=== PATIENT | male | born 1995 | race African-American/Black ===

== ENCOUNTER 2017-02-17 13:11 | Emergency (ER) | payer SELFPAY ==
[~2017-02-17] VITALS: Ht 177.8 cm; Wt 81.6 kg
[2017-02-17 13:20] VITALS: BP 130/78
[2017-02-17] MEDS ORDERED: FLUORESCEIN OPHTH TEST STRIP. OD ONE (13:30)
[2017-02-17] MEDS ORDERED: EYE-STREAM OPHTH SOLUTION 120 ML BOTTLE. OD ONE (13:30)
[2017-02-17] MEDS ORDERED: TETRACAINE 0.5% OPHTH SOLUTION 4ML BOTTLE. OD ONE (13:30)
--- NOTE | 2017-02-17 13:36 | PHYS DOC ---
Past Medical History Past Medical History: No Pertinent History Past Surgical History: Other Additional Past Surgical Histo: R leg Alcohol Use: Rarely Drug Use: Marijuana Adult General Chief Complaint Chief Complaint: EYE PROBLEMS HPI HPI Patient is a 21 year old female presents to the emergency department stating that he was requesting that he has contact lenses and he states that he felt his left eye beginning to burn and sting. Patient states that he has had clear yellow drainage noted from the sites. Patient states that he is unsure when his last tetanus immunization occurred. He does have redness noted in the sclera part of his eyes in the conjunctiva. Patient denies any foreign bodies. Review of Systems Review of Systems Constitutional: Denies fever or chills [] Eyes: Denies change in visual acuity, complaint of redness and I tenderness with burning, clear drainage. HENT: Denies nasal congestion or sore throat [] Respiratory: Denies cough or shortness of breath [] Cardiovascular: No additional information not addressed in HPI [] GI: Denies abdominal pain, nausea, vomiting, bloody stools or diarrhea [] : Denies dysuria or hematuria [] Musculoskeletal: Denies back pain or joint pain [] Integument: Denies rash or skin lesions [] Neurologic: Denies headache, focal weakness or sensory changes [] Endocrine: Denies polyuria or polydipsia [] Current Medications Current Medications Current Medications Medications (Trade) Dose Ordered Sig/Obie Start Time Stop Time Status Last Admin Dose Admin Balanced Salt Solution (Eye-Stream) 120 ml 1X ONCE 02/17/17 13:45 02/17/17 13:46 DC Diphtheria/ Tetanus/Acell Pertussis (Boostrix) 0.5 ml ONCE ONCE 02/17/17 13:45 02/17/17 13:46 DC Fluorescein Sodium (Ful-Candace) 1 strip 1X ONCE 02/17/17 13:45 02/17/17 13:46 DC Tetracaine HCl (Tetracaine) 1 drop 1X ONCE 02/17/17 13:45 02/17/17 13:46 DC Allergies Allergies Allergies Coded Allergies Type Severity Reaction Last Updated Verified Penicillins Allergy Intermediate 02/17/17 Yes Physical Exam Physical Exam Constitutional: Well developed, well nourished, no acute distress, non-toxic appearance. [] HENT: Normocephalic, atraumatic, bilateral external ears normal, oropharynx moist, no oral exudates, nose normal. [] Eyes: PERRLA, EOMI, conjunctiva red, clear drainage noted from the left eye. Neck: Normal range of motion, no tenderness, supple, no stridor. [] Cardiovascular:Heart rate regular rhythm, no murmur [] Lungs & Thorax: Bilateral breath sounds clear to auscultation [] Skin: Warm, dry, no erythema, no rash. [] Back: No tenderness Extremities: No tenderness, no cyanosis, no clubbing, ROM intact, no edema. [] Neurologic: Alert and oriented X 3, normal motor function, normal sensory function, no focal deficits noted. [] Psychologic: Affect normal, judgement normal, mood normal. [] Current Patient Data Vital Signs Vital Signs Date Time Temp Pulse Resp B/P (MAP) Pulse Ox O2 Delivery O2 Flow Rate FiO2 02/17/17 13:20 98.2 84 20 99 Room Air 98.2 EKG EKG [] Radiology/Procedures Radiology/Procedures [] Course & Med Decision Making Course & Med Decision Making Pertinent Labs and Imaging studies reviewed. (See chart for details) Tetracaine was placed into the left eye with fluorescein, no uptake noted. Eye stream at the bedside was used to irrigate the eye. Patient will be discharged home with ofloxacin. He was recommended not to places contact lenses for the next 7 days until the eye is no longer red. 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 He'll be provided with a work note. Signs and symptoms to return back to the emergency department as been provided. Patient agrees with discharge instructions treatment regimens and follow-up recommendations. [] Dragon Disclaimer Dragon Disclaimer This electronic medical record was generated, in whole or in part, using a voice recognition dictation system. Departure Departure Impression: Primary Impression: Conjunctivitis, left eye Disposition: 01 HOME, SELF-CARE Condition: STABLE Referrals: Fransisco CASTAÑEDA MD Patient Instructions: Bacterial Conjunctivitis, [id number] Additional Instructions: Activity as tolerated. Good handwashing is essential. Medications as prescribed. Do not put your contact lenses back anterior left eye for the next 7 days. You'll need to worry or glasses to help with her vision. Follow-up with ophthalmology in the next 24 hours. Return back to emergency prior signs and symptoms of become worse. Scripts Ofloxacin (OCUFLOX) 5 Ml Drops 1-2 DROP OS BID, #[address] in the left eye for the next 7 days Prov: CHRISTEL GODINEZ APRN 02/17/17 CHRISTEL GODINEZ APRN Feb 17, 2017 13:36
[2017-02-17] MEDS ORDERED: EYE-STREAM OPHTH SOLUTION 120 ML BOTTLE. OS ONE (13:45)
[2017-02-17] MEDS ORDERED: DIPHTH,PERTUSS(ACELL),TET TOX 0.5 ML DISP.SYRIN. VAX IM ONE (13:45)
[2017-02-17] MEDS ORDERED: FLUORESCEIN OPHTH TEST STRIP. OS ONE (13:45)
[2017-02-17] MEDS ORDERED: TETRACAINE 0.5% OPHTH SOLUTION 4ML BOTTLE. OS ONE (13:45)
[2017-02-17] MEDS ORDERED: OFLO5DRO OS (13:54)
== END 2017-02-17 14:05 | disposition home or self-care (01) ==
LOC: ER 13:11
DX: H10.9 Unspecified conjunctivitis (principal); F12.10 Cannabis abuse, uncomplicated; Z88.0 Allergy status to penicillin
CPT/HCPCS: 90471; 90715; 99283-25

== ENCOUNTER 2018-02-05 23:35 | Emergency (ER) | payer SELFPAY | END 2018-02-06 01:29 | disposition home or self-care (01) | LOC: ER 23:35 | DX: H61.23 Impacted cerumen, bilateral (principal); H66.92 Otitis media, unspecified, left ear; H60.92 Unspecified otitis externa, left ear; Z88.0 Allergy status to penicillin | CPT/HCPCS: 99283 ==

== ENCOUNTER 2018-06-15 17:58 | Emergency (ER) | payer SELFPAY ==
[2018-05-05 13:37] VITALS: BP 129/88
[~2018-06-15 17:58] MED LIST: AMOX875T PO; CIPR7.5D LEFT EAR; OFLO5DRO OS
== END 2018-06-15 18:20 | disposition left against medical advice (07) ==
LOC: ER 17:58
DX: R10.9 Unspecified abdominal pain (principal); Z53.21 Procedure and treatment not carried out due to patient leaving prior to being seen by health care provider

== ENCOUNTER 2018-10-20 22:34 | Emergency (ER) | payer SELFPAY ==
[~2018-10-20] VITALS: Ht 177.8 cm; Wt 68.0 kg
[2018-10-20 22:40] VITALS: BP 143/89
[2018-10-20] MEDS ORDERED: silver sulfADIAZINE 1% CREAM 25GM TUBE. TP ONE (23:00)
[2018-10-20] MEDS ORDERED: NAPROXEN 500 MG TABLET PO ONE (23:00)
[2018-10-20] MEDS ORDERED: DIPHTH,PERTUSS(ACELL),TET TOX 0.5 ML DISP.SYRIN. VAX IM ONE (23:00)
[2018-10-20] MEDS ORDERED: HYDROcodone/APAP 5/325MG 1 TAB TABLET PO ONE (23:00)
--- NOTE | 2018-10-20 23:19 | PHYS DOC ---
Past Medical History Past Medical History: No Pertinent History Additional Past Medical Histor: EXZEMA (TOBY HUNTER APRN) Past Surgical History: Other Additional Past Surgical Histo: R leg (TOBY HUNTER APRN) Alcohol Use: Occasionally Drug Use: None (TOBY HUNTER APRN) Adult General Chief Complaint Chief Complaint: BURN/SMOKE INHALATION HPI HPI Patient is a 23 year old male with no medical hx who presents with a burn to the right foot. Patient states he was making fried chicken and the oil splattered on his right foot. (TOBY HUNTER APRN) Review of Systems Review of Systems Constitutional: Denies fever or chills [] Musculoskeletal: Denies back pain or joint pain [] Integument:landers to the right foot. Neurologic: Denies headache, focal weakness or sensory changes [] All other systems were reviewed and found to be within normal limits, except as documented in this note. (TOBY HUNTER APRN) Current Medications Current Medications Current Medications Medications (Trade) Dose Ordered Sig/Obie Start Time Stop Time Status Last Admin Dose Admin Acetaminophen/ Hydrocodone Bitart (Lortab 5/325) 2 tab 1X ONCE 10/20/18 23:00 10/20/18 23:01 DC 10/20/18 23:13 2 TAB Diphtheria/ Tetanus/Acell Pertussis (Boostrix) 0.5 ml ONCE ONCE 10/20/18 23:00 10/20/18 23:01 DC 10/20/18 23:14 0.5 ML Naproxen (Naprosyn) 500 mg 1X ONCE 10/20/18 23:00 10/20/18 23:01 DC 10/20/18 23:13 500 MG Silver Sulfadiazine (Silvadene) 1 wanda 1X ONCE 10/20/18 23:00 10/20/18 23:01 DC 10/20/18 23:15 1 WANDA (DOROTA PATEL MD) Allergies Allergies Allergies Coded Allergies Type Severity Reaction Last Updated Verified Penicillins Allergy Intermediate 02/17/17 Yes (DOROTA PATEL MD) Physical Exam Physical Exam Constitutional: Well developed, well nourished, no acute distress, non-toxic appearance. [] Skin: Right mid great toe ventral aspect with a large blister consistent with second-degree burn. The blisters approximately 4 x 2 cm. There is also a tiny blister on the right mid second phalange approximately 0.2 x 0.2 cm. Full range of motion to the right foot and toes. +2 right pedal pulse. Cap refill less than 2 seconds the right toes. Sensation intact to the right toes. Both bounds approximately 0.05% of the foot Back: No tenderness, no CVA tenderness. [] Extremities: No tenderness, no cyanosis, no clubbing, ROM intact, no edema. [] Neurologic: Alert and oriented X 3, normal motor function, normal sensory function, no focal deficits noted. [] Psychologic: Affect normal, judgement normal, mood normal. [] (TOBY HUNTER APRN) Current Patient Data Vital Signs Vital Signs Date Time Temp Pulse Resp B/P (MAP) Pulse Ox O2 Delivery O2 Flow Rate FiO2 10/20/18 23:13 18 97 Room Air 10/20/18 22:40 98.6 106 143/89 (107) 98.6 (DOROTA PATEL MD) EKG EKG [] (TOBY HUNTER APRN) Radiology/Procedures Radiology/Procedures Indication: Blister burn to the right foot Procedure: The patient was positioned appropriately. Local anesthesia was not applicable, the area was cleaned with normal saline and Betadine. An incision was then made on the proximal end of the blister on the right great toe and mild amount of clear material was expressed, the area was covered with none stick dressing and sterile gauze. The patients tetanus status updated as needed. The patient tolerated the procedure well. Complications: none.[] (TOBY HUNTER APRN) Course & Med Decision Making Course & Med Decision Making Pertinent Labs and Imaging studies reviewed. (See chart for details) This is a 23-year-old male patient presenting to the ED today with right foot landers. Patient has burn on the right great toe and right second toe. The right great toe burn was debrided by me. Tetanus updated. Discharged on Bactrim prophylaxis patient is allergic to cephalexin, Silvadene ointment in the ED. Follow-up with PCP or the wound clinic in one week (TOBY HUNTER APRN) Course & Med Decision Making Staff Physician Addendum: I was working in the ER during the course of this patient's visit. I was available for consultation as needed, but I was not directly involved in the care of this patient. (DOROTA PATEL MD) Dragon Disclaimer Dragon Disclaimer This electronic medical record was generated, in whole or in part, using a voice recognition dictation system. (TOBY HUNTER APRN) Departure Departure Impression: Primary Impression: Burn of right foot Disposition: HOME, SELF-CARE Condition: STABLE Referrals: NO PCP (PCP) Follow-up next week with [facility] wound clinic or your own doctor Patient Instructions: Burn Care, [id number] Additional Instructions: You were evaluated for burn on her right foot. Try to ice elevate the extremity tonight. Leave the dressing on the right great toe until tomorrow. Take the prescribed antibiotics until completed. Keep the wound clean and dry. Follow-up with your own doctor or [facility] wound clinic in one to 2 weeks as needed. Scripts Sulfamethoxazole/Trimethoprim (BACTRIM DS TABLET) 1 Each Tablet 1 TAB PO BID, #20 TAB Prov: TOBY HUNTER APRN 10/20/18 Hydrocodone/Apap 5-325 (NORCO 5-325 TABLET) 1 Each Tablet 1-2 TAB PO Q4-6HRS, #25 TAB Prov: TOBY HUNTER APRN 10/20/18 Problem Qualifiers Primary Impression: Burn of right foot Encounter type: initial encounter Burn degree: partial thickness (2nd degree ) Qualified Codes: T25.221A - Burn of second degree of right foot, initial encounter TOBY HUNTER APRN Oct 20, 2018 23:19 DOROTA PATEL MD Oct 21, 2018 04:44
[2018-10-20] MEDS ORDERED: HYDR-3164 PO (23:33)
[2018-10-20] MEDS ORDERED: SULF1TAB24 PO (23:33)
== END 2018-10-20 23:40 | disposition home or self-care (01) ==
LOC: ER 22:34
DX: T25.221A Burn of second degree of right foot, initial encounter (principal); Z88.0 Allergy status to penicillin; T31.0 Burns involving less than 10% of body surface; X10.2XXA Contact with fats and cooking oils, initial encounter; Y93.G3 Activity, cooking and baking; Y92.89 Other specified places as the place of occurrence of the external cause; Y99.8 Other external cause status
CPT/HCPCS: 10140; 90471; 90715; 99284-25

== ENCOUNTER 2019-01-24 19:13 | Inpatient (IN) | payer SELFPAY ==
[~2019-01-24] VITALS: Ht 177.8 cm; Wt 71.3 kg
[~2019-01-24 19:13] MED LIST changes: +HYDR-3164 PO; +SULF1TAB24 PO
[2019-01-24] MEDS ORDERED: FAMOTIDINE 20 MG/2 ML VIAL IVP ONE (19:45)
[2019-01-24] MEDS ORDERED: IV NORMAL SALINE 1000ML BAG 1,000 ML IV ONE (19:45)
[2019-01-24] MEDS ORDERED: KETOROLAC 30 MG/ML VIAL. IV ONE (19:45)
[2019-01-24 19:50] LABS: BILIRUBIN,URINE NEGATIVE (NEG); CLARITY,URINE CLEAR; COLOR,URINE YELLOW; NITRITE,URINE NEGATIVE (NEG); PH,URINE 6.5; PROTEIN,URINE NEGATIVE (NEG-TRACE)
[2019-01-24 20:01] LABS: BASO % 1 % (0-3); EOS # 0.1 x10^3/uL (0.0-0.7); EOS % 1 % (0-3); HEMATOCRIT 40.4 % (39.0-53.0); HEMOGLOBIN 14.1 g/dL (13.0-17.5); LYMPH # 1.1 x10^3/uL (1.0-4.8); LYMPH % 29 % (24-48); MEAN CORPUSCULAR HEMOGLOBIN 33 pg (25-35); MEAN CORPUSCULAR HGB CONC 35 g/dL (31-37); MEAN CORPUSCULAR VOLUME 94 fL (79-100); MONO # 0.9 x10^3/uL (0.0-1.1); MONO % 23 % (0-9); NEUT # 1.8 x10^3uL (1.8-7.7); NEUT % 47 % (31-73); PLATELET COUNT 174 x10^3/uL (140-400); RED BLOOD COUNT 4.28 x10^6/uL (4.30-5.70); RED CELL DISTRIBUTION WIDTH 12.2 % (11.5-14.5); WHITE BLOOD COUNT 3.9 x10^3/uL (4.0-11.0)
[2019-01-24 20:07] LABS: CALCIUM 9.2 mg/dL (8.5-10.1); CREATININE 0.9 mg/dL (0.7-1.3); GFR 125.4; POTASSIUM 3.8 mmol/L (3.5-5.1)
[2019-01-24 20:14] LABS: ALBUMIN 3.9 g/dL (3.4-5.0); MAGNESIUM 2.1 mg/dL (1.8-2.4); TOTAL BILIRUBIN 0.7 mg/dL (0.2-1.0); TOTAL PROTEIN 7.8 g/dL (6.4-8.2)
[2019-01-24 20:20] LABS: BACTERIA,URINE 0 /HPF (0-FEW); RBC,URINE 0 /HPF (0-2); WBC,URINE RARE /HPF (0-4)
--- NOTE | 2019-01-24 20:53 | PHYS DOC ---
Past Medical History Past Medical History: No Pertinent History Additional Past Medical Histor: EXZEMA Past Surgical History: Other Additional Past Surgical Histo: "RIGHT ANKLE" Alcohol Use: Occasionally Drug Use: None Adult General Chief Complaint Chief Complaint: ABDOMINAL PAIN HPI HPI Patient is a 23 year old [f__sex] who presents with [] Review of Systems Review of Systems Constitutional: Denies fever or chills [] Eyes: Denies change in visual acuity, redness, or eye pain [] HENT: Denies nasal congestion or sore throat [] Respiratory: Denies cough or shortness of breath [] Cardiovascular: No additional information not addressed in HPI [] GI: Denies abdominal pain, nausea, vomiting, bloody stools or diarrhea [] : Denies dysuria or hematuria [] Musculoskeletal: Denies back pain or joint pain [] Integument: Denies rash or skin lesions [] Neurologic: Denies headache, focal weakness or sensory changes [] Endocrine: Denies polyuria or polydipsia [] All other systems were reviewed and found to be within normal limits, except as documented in this note. Current Medications Current Medications Current Medications Medications (Trade) Dose Ordered Sig/Obie Start Time Stop Time Status Last Admin Dose Admin Famotidine (Pepcid Vial) 20 mg 1X ONCE 01/24/19 19:45 01/24/19 19:46 DC 01/24/19 19:55 20 MG Ketorolac Tromethamine (Toradol 30mg Vial) 15 mg 1X ONCE 01/24/19 19:45 01/24/19 19:46 DC 01/24/19 19:56 15 MG Sodium Chloride 1,000 ml @ 1,000 mls/hr 1X ONCE 01/24/19 19:45 01/24/19 20:44 DC 01/24/19 19:55 1,000 MLS/HR Allergies Allergies Allergies Coded Allergies Type Severity Reaction Last Updated Verified Penicillins Allergy Intermediate 02/17/17 Yes Physical Exam Physical Exam Constitutional: Well developed, well nourished, no acute distress, non-toxic appearance. [] HENT: Normocephalic, atraumatic, bilateral external ears normal, oropharynx moist, no oral exudates, nose normal. [] Eyes: PERRLA, EOMI, conjunctiva normal, no discharge. [] Neck: Normal range of motion, no tenderness, supple, no stridor. [] Cardiovascular:Heart rate regular rhythm, no murmur [] Lungs & Thorax: Bilateral breath sounds clear to auscultation [] Abdomen: Bowel sounds normal, soft, no tenderness, no masses, no pulsatile masses. [] Skin: Warm, dry, no erythema, no rash. [] Back: No tenderness, no CVA tenderness. [] Extremities: No tenderness, no cyanosis, no clubbing, ROM intact, no edema. [] Neurologic: Alert and oriented X 3, normal motor function, normal sensory function, no focal deficits noted. [] Psychologic: Affect normal, judgement normal, mood normal. [] Current Patient Data Vital Signs Vital Signs Date Time Temp Pulse Resp B/P (MAP) Pulse Ox O2 Delivery O2 Flow Rate FiO2 01/24/19 19:20 98.9 82 18 136/93 (107) 100 Room Air 98.9 Lab Values Laboratory Tests Test 01/24/19 19:30 01/24/19 19:45 Urine Collection Type Unknown Urine Color Yellow Urine Clarity Clear Urine pH 6.5 Urine Specific [place] 1.025 Urine Protein Negative mg/dL (NEG-TRACE) Urine Glucose (UA) Negative mg/dL (NEG) Urine Ketones (Stick) Negative mg/dL (NEG) Urine Blood Negative (NEG) Urine Nitrite Negative (NEG) Urine Bilirubin Negative (NEG) Urine Urobilinogen Dipstick 1.0 mg/dL (0.2 mg/dL) Urine Leukocyte Esterase Negative (NEG) Urine RBC 0 /HPF (0-2) Urine WBC Rare /HPF (0-4) Urine Squamous Epithelial Cells None /LPF Urine Bacteria 0 /HPF (0-FEW) Urine Mucus Slight /LPF White Blood Count 3.9 x10^3/uL (4.0-11.0) L Red Blood Count 4.28 x10^6/uL (4.30-5.70) L Hemoglobin 14.1 g/dL (13.0-17.5) Hematocrit 40.4 % (39.0-53.0) Mean Corpuscular Volume 94 fL (79-100) Mean Corpuscular Hemoglobin 33 pg (25-35) Mean Corpuscular Hemoglobin Concent 35 g/dL (31-37) Red Cell Distribution Width 12.2 % (11.5-14.5) Platelet Count 174 x10^3/uL (140-400) Neutrophils (%) (Auto) 47 % (31-73) Lymphocytes (%) (Auto) 29 % (24-48) Monocytes (%) (Auto) 23 % (0-9) H Eosinophils (%) (Auto) 1 % (0-3) Basophils (%) (Auto) 1 % (0-3) Neutrophils # (Auto) 1.8 x10^3uL (1.8-7.7) Lymphocytes # (Auto) 1.1 x10^3/uL (1.0-4.8) Monocytes # (Auto) 0.9 x10^3/uL (0.0-1.1) Eosinophils # (Auto) 0.1 x10^3/uL (0.0-0.7) Basophils # (Auto) 0.0 x10^3/uL (0.0-0.2) Sodium Level 142 mmol/L (136-145) Potassium Level 3.8 mmol/L (3.5-5.1) Chloride Level 105 mmol/L (98-107) Carbon Dioxide Level 25 mmol/L (21-32) Anion Gap 12 (6-14) Blood Urea Nitrogen 13 mg/dL (8-26) Creatinine 0.9 mg/dL (0.7-1.3) Estimated GFR (Cockcroft-Gault) 125.4 BUN/Creatinine Ratio 14 (6-20) Glucose Level 93 mg/dL (70-99) Calcium Level 9.2 mg/dL (8.5-10.1) Magnesium Level 2.1 mg/dL (1.8-2.4) Total Bilirubin 0.7 mg/dL (0.2-1.0) Aspartate Amino Transferase (AST) 64 U/L (15-37) H Alanine Aminotransferase (ALT) 166 U/L (16-63) H Alkaline Phosphatase 100 U/L (46-116) Total Protein 7.8 g/dL (6.4-8.2) Albumin 3.9 g/dL (3.4-5.0) Albumin/Globulin Ratio 1.0 (1.0-1.7) Lipase 981 U/L (73-393) H Laboratory Tests 01/24/19 19:45 Laboratory Tests 01/24/19 19:45 EKG EKG [] Radiology/Procedures Radiology/Procedures [] Course & Med Decision Making Course & Med Decision Making Pertinent Labs and Imaging studies reviewed. (See chart for details) [] Dragon Disclaimer Dragon Disclaimer This electronic medical record was generated, in whole or in part, using a voice recognition dictation system. Departure Departure Impression: Primary Impression: Acute pancreatitis Disposition: ADMITTED INPATIENT Admitting Physician: HAO APARICIO) Condition: STABLE Referrals: NO PCP (PCP) Problem Qualifiers Primary Impression: Acute pancreatitis Pancreatitis type: unspecified pancreatitis type Acute pancreatitis complication: unspecified Qualified Codes: K85.90 - Acute pancreatitis without necrosis or infection, unspecified JAMES ROGERS DO Jan 24, 2019 20:53
[2019-01-24] MEDS ORDERED: fentaNYL PF VIAL 100 MCG/2 ML VIAL IV PRN (21:00)
[2019-01-24] MEDS ORDERED: ONDANSETRON PF 4 MG/2 ML VIAL. IV PRN (21:00)
[2019-01-24] MEDS ORDERED: IOHEXOL 300 MG/ML 100ML VIAL. IV ONE (21:15)
[2019-01-24] MEDS ORDERED: IOHEXOL 240 MG/ML 50ML VIAL. PO ONE (21:15)
[2019-01-24] MEDS ORDERED: CONTRAST GIVEN. MC PRN (21:30)
[2019-01-24 22:35] LABS: BARBITURATES NEG (NEG); BENZODIAZEPINES NEG (NEG); CANNABINOIDS NEG (NEG); COCAINE NEG (NEG); METHADONE NEG (NEG); OPIATES NEG (NEG); PHENCYCLIDINE NEG (NEG)
[2019-01-24 22:42] LABS: AMPHETAMINE/METHAMPHETAMINE NEG (NEG)
--- NOTE | 2019-01-24 23:08 | PDOC1 ---
History and Physical Date of Admission Date of Admission DATE: 01/24/19 TIME: 23:08 Identification/Chief Complaint Chief Complaint Back pain, pancreatitis Source Source: Patient History of Present Illness History of Present Illness Mr Gilbert is a 23yo M w/ PMHx smoker who p/w 5 day history of nausea, poor PO intake and intractable back pain. He notes he has been taking advil for the pain with some relief, but food has been making the pain worse. He recalls previously he was hospitalized for the same at [facility] and was told he had pancreatitis. In ED was noted with leukopenia and elevated lipase 981 with ALT 166 and AST 64 were elevated as well with a negative tox screen. CT abdomen confirms some fluid around pancreas, no necrosis noted. He is a light alcohol drinker 2-4 drinks per week. Smokes 2-4 "Black and mild" cigarillos per day. Does not use recreational drugs. 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 On further ROS he notes he has been having constipation along with his back pain the past 5 days. Past Medical History Cardiovascular: No pertinent hx Pulmonary: No pertinent hx GI: No pertinent hx Heme/Onc: No pertinent hx Hepatobiliary: No pertinent hx Psych: No pertinent hx Musculoskeletal: low back pain Rheumatologic: No pertinent hx Infectious disease: No pertinent hx ENT: No pertinent hx Renal/: No pertinent hx Endocrine: No pertinent hx Dermatology: Eczema Past Surgical History Past Surgical History: Other (Right ankle fracture) Family History Family History: Family History Unknown Social History Smoke: <1 pack per day ALCOHOL: rare Drugs: None Current Problem List Problem List Problems Medical Problems: (1) Acute pancreatitis Status: Acute Current Medications Current Medications Current Medications Famotidine (Pepcid Vial) 20 mg 1X ONCE IVP Last administered on 01/24/19at 19:55; Start 01/24/19 at 19:45; Stop 01/24/19 at 19:46; Status DC Ketorolac Tromethamine (Toradol 30mg Vial) 15 mg 1X ONCE IV Last administered on 01/24/19at 19:56; Start 01/24/19 at 19:45; Stop 01/24/19 at 19:46; Status DC Sodium Chloride 1,000 ml @ 1,000 mls/hr 1X ONCE IV Last administered on 01/24/19at 19:55; Start 01/24/19 at 19:45; Stop 01/24/19 at 20:44; Status DC Ondansetron HCl (Zofran) 4 mg PRN Q8HRS PRN IV NAUSEA/VOMITING Last administered on 01/24/19at 21:29; Start 01/24/19 at 21:00; Stop 01/25/19 at 20:59 Fentanyl Citrate (Fentanyl 2ml Vial) 50 mcg Q2HR PRN IV PAIN Last administered on 01/24/19at 21:30; Start 01/24/19 at 21:00; Stop 01/25/19 at 20:59 Iohexol (Omnipaque 300 Mg/ml) 75 ml 1X ONCE IV Last administered on 01/24/19at 22:51; Start 01/24/19 at 21:15; Stop 01/24/19 at 21:16; Status DC Iohexol (Omnipaque 240 Mg/ml) 30 ml 1X ONCE PO Last administered on 01/24/19at 22:51; Start 01/24/19 at 21:15; Stop 01/24/19 at 21:16; Status DC Info (CONTRAST GIVEN -- Rx MONITORING) 1 each PRN DAILY PRN MC SEE COMMENTS; Start 01/24/19 at 21:30; Stop 01/26/19 at 21:29 Active Scripts Active Bactrim Ds Tablet (Sulfamethoxazole/Trimethoprim) 1 Each Tablet 1 Tab PO BID Jenkins 5-325 Tablet (Acetaminophen/Hydrocodone Bitart) 1 Each Tablet 1-2 Tab PO Q4-6HRS Ciprodex Otic Suspension (Ciprofloxacin Hcl/Dexameth) 7.5 Ml Drops.susp 4 Drop LEFT EAR BID 7 Days Amoxicillin 875 Mg Tablet 1 Tab PO BID 10 Days Ocuflox (Ofloxacin) 5 Ml Drops 1-[address] in the left eye for the next 7 days Allergies Allergies: Coded Allergies: Penicillins (Verified Allergy, Intermediate, 02/17/17) ROS General: YES: Appetite; No: Chills, Night Sweats, Fatigue, Malaise, Other PSYCHOLOGICAL ROS: No: Anxiety, Behavioral Disorder, Concentration difficultie, Decreased libido, Depression, Disorientation, Hallucinations, Hostility, Irritablity, Memory difficulties, Mood Swings, Obsessive thoughts, Physical abuse, Sexual abuse, Sleep disturbances, Suicidal ideation, Other Eyes: No Blurry vision, No Decreased vision, No Double vision, No Dry eyes, No Excessive tearing, No Eye Pain, No Itchy Eyes, No Loss of vision, No Photophobia, No Scotomata, No Uses contacts, No Uses glasses, No Other HEENT: No: Heacaches, Visual Changes, Hearing change, Nasal congestion, Nasal discharge, Oral lesions, Sinus pain, Sore Throat, Epistaxis, Sneezing, Snoring, Tinnitus, Vertigo, Vocal changes, Other ALLERGY AND IMMUNOLOGY: No: Hives, Insect Bite Sensitivity, Itchy/Watery Eyes, Nasal Congestion, Post Nasal Drip, Seasonal Allergies, Other Hematological and Lymphatic: No: Bleeding Problems, Blood Clots, Blood Transfusions, Brusing, Night Sweats, Pallor, Swollen Lymph Nodes, Other ENDOCRINE: No: Breast Changes, Galactorrhea, Hair Pattern Changes, Hot Flashes, Malaise/lethargy, Mood Swings, Palpitations, Polydipsia/polyuria, Skin Changes, Temperature Intolerance, Unexpected Weight Changes, Other Breast: No New/Changing Breast Lumps, No Nipple changes, No Nipple discharge, No Other Respiratory: No: Cough, Hemoptysis, Orthopnea, Pleuritic Pain, Shortness of breath, SOB with excertion, Sputum Changes, Stridor, Tachypnea, Wheezing, Other Cardiovascular: No Chest Pain, No Palpitations, No Orthopnea, No Paroxysmal Noc. Dyspnea, No Edema, No Lt Headedness, No Other Gastrointestinal: Yes Nausea, Yes Abdominal Pain, Yes Constipation; No Vomiting, No Diarrhea, No Melena, No Hematochezia, No Other Genitourinary: No Dysuria, No Frequency, No Incontinence, No Hematuria, No Retention, No Discharge, No Urgency, No Pain, No Flank Pain, No Other, No , No , No , No , No , No , No Musculoskeletal: Yes Muscle Pain; No Gait Disturbance, No Joint Pain, No Joint Stiffness, No Joint Swelling, No Muscular Weakness, No Pain In:, No Swelling In:, No Other Neurological: No Behavorial Changes, No Bowel/Bladder ControlChng, No Confusion, No Dizziness, No Gait Disturbance, No Headaches, No Impaired Coord/balance, No Memory Loss, No Numbness/Tingling, No Seizures, No Speech Problems, No Tremors, No Visual Changes, No Weakness, No Other Skin: Yes Eczema; No Dry Skin, No Hair Changes, No Lumps, No Mole Changes, No Mottling, No Nail Changes, No Pruritus, No Rash, No Skin Lesion Changes, No Other, No Acne Physical Exam General: Alert, Oriented X3, Cooperative, mild distress HEENT: Atraumatic, PERRLA, EOMI, Mucous membr. moist/pink Lungs: Clear to auscultation, Normal air movement Heart: S1S2, RRR Abdomen: Normal bowel sounds, No hepatosplenomegaly, No masses, Other (LUQ and left flank tender) Rectal Exam: not examined Extremities: No clubbing, No cyanosis, No edema, Normal pulses, No tenderness/swelling Skin: No rashes, No breakdown, No significant lesion Neuro: Normal gait, Normal speech, Strength at 5/5 X4 ext, Normal tone, Sensation intact, Cranial nerves 3-12 NL, Reflexes 2+ Psych/Mental Status: Mental status NL, Mood NL Vitals Vitals Vital Signs Date Time Temp Pulse Resp B/P (MAP) Pulse Ox O2 Delivery O2 Flow Rate FiO2 01/24/19 21:30 18 100 Room Air 01/24/19 19:20 98.9 82 136/93 (107) 98.9 Labs Labs Laboratory Tests Test 01/24/19 19:30 01/24/19 19:45 01/24/19 20:00 01/24/19 20:40 Urine Collection Type Unknown Urine Color Yellow Urine Clarity Clear Urine pH 6.5 Urine Specific [place] 1.025 Urine Protein Negative mg/dL (NEG-TRACE) Urine Glucose (UA) Negative mg/dL (NEG) Urine Ketones (Stick) Negative mg/dL (NEG) Urine Blood Negative (NEG) Urine Nitrite Negative (NEG) Urine Bilirubin Negative (NEG) Urine Urobilinogen Dipstick 1.0 mg/dL (0.2 mg/dL) Urine Leukocyte Esterase Negative (NEG) Urine RBC 0 /HPF (0-2) Urine WBC Rare /HPF (0-4) Urine Squamous Epithelial Cells None /LPF Urine Bacteria 0 /HPF (0-FEW) Urine Mucus Slight /LPF White Blood Count 3.9 x10^3/uL (4.0-11.0) Red Blood Count 4.28 x10^6/uL (4.30-5.70) Hemoglobin 14.1 g/dL (13.0-17.5) Hematocrit 40.4 % (39.0-53.0) Mean Corpuscular Volume 94 fL (79-100) Mean Corpuscular Hemoglobin 33 pg (25-35) Mean Corpuscular Hemoglobin Concent 35 g/dL (31-37) Red Cell Distribution Width 12.2 % (11.5-14.5) Platelet Count 174 x10^3/uL (140-400) Neutrophils (%) (Auto) 47 % (31-73) Lymphocytes (%) (Auto) 29 % (24-48) Monocytes (%) (Auto) 23 % (0-9) Eosinophils (%) (Auto) 1 % (0-3) Basophils (%) (Auto) 1 % (0-3) Neutrophils # (Auto) 1.8 x10^3uL (1.8-7.7) Lymphocytes # (Auto) 1.1 x10^3/uL (1.0-4.8) Monocytes # (Auto) 0.9 x10^3/uL (0.0-1.1) Eosinophils # (Auto) 0.1 x10^3/uL (0.0-0.7) Basophils # (Auto) 0.0 x10^3/uL (0.0-0.2) Sodium Level 142 mmol/L (136-145) Potassium Level 3.8 mmol/L (3.5-5.1) Chloride Level 105 mmol/L (98-107) Carbon Dioxide Level 25 mmol/L (21-32) Anion Gap 12 (6-14) Blood Urea Nitrogen 13 mg/dL (8-26) Creatinine 0.9 mg/dL (0.7-1.3) Estimated GFR (Cockcroft-Gault) 125.4 BUN/Creatinine Ratio 14 (6-20) Glucose Level 93 mg/dL (70-99) Calcium Level 9.2 mg/dL (8.5-10.1) Magnesium Level 2.1 mg/dL (1.8-2.4) Total Bilirubin 0.7 mg/dL (0.2-1.0) Aspartate Amino Transf (AST/SGOT) 64 U/L (15-37) Alanine Aminotransferase (ALT/SGPT) 166 U/L (16-63) Alkaline Phosphatase 100 U/L (46-116) Total Protein 7.8 g/dL (6.4-8.2) Albumin 3.9 g/dL (3.4-5.0) Albumin/Globulin Ratio 1.0 (1.0-1.7) Lipase 981 U/L (73-393) Urine Opiates Screen Neg (NEG) Urine Methadone Screen Neg (NEG) Urine Barbiturates Neg (NEG) Urine Phencyclidine Screen Neg (NEG) Urine Amphetamine/Methamphetamine Neg (NEG) Urine Benzodiazepines Screen Neg (NEG) Urine Cocaine Screen Neg (NEG) Urine Cannabinoids Screen Neg (NEG) Urine Ethyl Alcohol Neg (NEG) Ethyl Alcohol Level < 10 mg/dL (0-10) Laboratory Tests Test 01/24/19 19:30 01/24/19 19:45 01/24/19 20:00 01/24/19 20:40 Urine Collection Type Unknown Urine Color Yellow Urine Clarity Clear Urine pH 6.5 Urine Specific [place] 1.025 Urine Protein Negative mg/dL (NEG-TRACE) Urine Glucose (UA) Negative mg/dL (NEG) Urine Ketones (Stick) Negative mg/dL (NEG) Urine Blood Negative (NEG) Urine Nitrite Negative (NEG) Urine Bilirubin Negative (NEG) Urine Urobilinogen Dipstick 1.0 mg/dL (0.2 mg/dL) Urine Leukocyte Esterase Negative (NEG) Urine RBC 0 /HPF (0-2) Urine WBC Rare /HPF (0-4) Urine Squamous Epithelial Cells None /LPF Urine Bacteria 0 /HPF (0-FEW) Urine Mucus Slight /LPF White Blood Count 3.9 x10^3/uL (4.0-11.0) Red Blood Count 4.28 x10^6/uL (4.30-5.70) Hemoglobin 14.1 g/dL (13.0-17.5) Hematocrit 40.4 % (39.0-53.0) Mean Corpuscular Volume 94 fL (79-100) Mean Corpuscular Hemoglobin 33 pg (25-35) Mean Corpuscular Hemoglobin Concent 35 g/dL (31-37) Red Cell Distribution Width 12.2 % (11.5-14.5) Platelet Count 174 x10^3/uL (140-400) Neutrophils (%) (Auto) 47 % (31-73) Lymphocytes (%) (Auto) 29 % (24-48) Monocytes (%) (Auto) 23 % (0-9) Eosinophils (%) (Auto) 1 % (0-3) Basophils (%) (Auto) 1 % (0-3) Neutrophils # (Auto) 1.8 x10^3uL (1.8-7.7) Lymphocytes # (Auto) 1.1 x10^3/uL (1.0-4.8) Monocytes # (Auto) 0.9 x10^3/uL (0.0-1.1) Eosinophils # (Auto) 0.1 x10^3/uL (0.0-0.7) Basophils # (Auto) 0.0 x10^3/uL (0.0-0.2) Sodium Level 142 mmol/L (136-145) Potassium Level 3.8 mmol/L (3.5-5.1) Chloride Level 105 mmol/L (98-107) Carbon Dioxide Level 25 mmol/L (21-32) Anion Gap 12 (6-14) Blood Urea Nitrogen 13 mg/dL (8-26) Creatinine 0.9 mg/dL (0.7-1.3) Estimated GFR (Cockcroft-Gault) 125.4 BUN/Creatinine Ratio 14 (6-20) Glucose Level 93 mg/dL (70-99) Calcium Level 9.2 mg/dL (8.5-10.1) Magnesium Level 2.1 mg/dL (1.8-2.4) Total Bilirubin 0.7 mg/dL (0.2-1.0) Aspartate Amino Transf (AST/SGOT) 64 U/L (15-37) Alanine Aminotransferase (ALT/SGPT) 166 U/L (16-63) Alkaline Phosphatase 100 U/L (46-116) Total Protein 7.8 g/dL (6.4-8.2) Albumin 3.9 g/dL (3.4-5.0) Albumin/Globulin Ratio 1.0 (1.0-1.7) Lipase 981 U/L (73-393) Urine Opiates Screen Neg (NEG) Urine Methadone Screen Neg (NEG) Urine Barbiturates Neg (NEG) Urine Phencyclidine Screen Neg (NEG) Urine Amphetamine/Methamphetamine Neg (NEG) Urine Benzodiazepines Screen Neg (NEG) Urine Cocaine Screen Neg (NEG) Urine Cannabinoids Screen Neg (NEG) Urine Ethyl Alcohol Neg (NEG) Ethyl Alcohol Level < 10 mg/dL (0-10) Images Images CT abdomen - 1. Fullness and edema of the pancreas which can be seen with pancreatitis. There is also some adjacent free fluid. 2. The appendix is dilated however there is no adjacent inflammatory changes to suggest acute appendicitis. Please note that some patients can have a dilated appendix at baseline and the patient's edema is more centered around the pancreas. 3. Small low density region at the hepatic dome. Typically benign in nature f rom causes such as cyst or hemangioma in a patient of this age. Alternative causes such as a region of edema from infectious etiology not excluded but would be less common. VTE Prophylaxis Ordered VTE Prophylaxis Devices: Yes VTE Pharmacological Prophylaxi: No Assessment/Plan Assessment/Plan A/P: Intractable back pain - likely related to pancreatitis, ok for NSAIDs, heating pad. Could try muscle relaxants if necessary Pancreatitis - will keep NPO overnight, pain control, nausea control Transaminitis - with pancreatitis, will consult GI, check for autoimmune effect as tox screen and ETOH use don't sound to be his problem, not on a thiazide, calcium level ok, will check triglycerides as well. Constipation - will give dulcolax prn Smoker - counseled on cessation, wants gum FEN - NPO PPX - SCDs FULL CODE Inpatient for acute pancreatitis, likely 1-2 midnights BEATRIZ BOSS MD Jan 24, 2019 23:08
--- NOTE | 2019-01-24 23:23 | RAD ---
INDICATION: Abdomen pain, pancreatitis. COMPARISON: None. TECHNIQUE: Axial CT images obtained through the abdomen and pelvis with contrast. One or more of the following individualized dose reduction techniques were utilized for this examination: 1. Automated exposure control; 2. Adjustment of the mA and/or kV according to patient size; 3. Use of iterative reconstruction technique. FINDINGS: Abdominal aorta is not aneurysmal. No intrahepatic bile duct dilation. Low-density region near the hepatic dome at right lobe. Measures approximately 15 mm. Pancreas appears prominent in size with adjacent edema and fluid. Spleen unremarkable. No left-sided hydronephrosis. Urinary bladder is largely decompressed. No right-sided hydronephrosis. The colon is not very distended with some prominence of the wall. Appendix is prominent in size measuring up to about 8 mm but no adjacent inflammatory changes at this time. No dilated loops of bowel to suggest obstruction. IMPRESSION: 1. Fullness and edema of the pancreas which can be seen with pancreatitis. There is also some adjacent free fluid. 2. The appendix is dilated however there is no adjacent inflammatory changes to suggest acute appendicitis. Please note that some patients can have a dilated appendix at baseline and the patient's edema is more centered around the pancreas. 3. Small low density region at the hepatic dome. Typically benign in nature from causes such as cyst or hemangioma in a patient of this age. Alternative causes such as a region of edema from infectious etiology not excluded but would be less common. Electronically signed by: Ronaldo Masterson MD (01/24/2019 11:21 PM) [id number]
[2019-01-24 23:30] VITALS: BP 135/99
[2019-01-24] MEDS ORDERED: BISACODYL 10 MG SUPP.RECT. PR PRN (23:45)
[2019-01-25] MEDS: IV RINGERS,LACTATED 1000ML 1,000 ML IV SCH ×3 (00:06→20:45)
[2019-01-25] MEDS: fentaNYL PF VIAL 100 MCG/2 ML VIAL IV PRN ×10 (00:06→20:40)
--- NOTE | 2019-01-25 01:00 | NUR ---
ADMIT NOTE The patient arrived to unit at 2325 via wheelchair and was given written information regarding hospital policies, unit procedures and contact persons. Pt afebrile and VSS w/ moderate complaints of pain upon admission. Pt orientated to unit and valuables were checked and left in room w/ pt at time of admission. Pt admission assessment complete, admit packet reviewed, and plan of care discussed. Pt resting in bed, call light w/in reach and family at bedside, this nurse will continue to monitor.
[2019-01-25 03:00] VITALS: BP 139/102
[2019-01-25] MEDS: KETOROLAC 15 MG/ML VIAL. IV PRN ×4 (03:20→21:24)
[2019-01-25 06:41] LABS: ALBUMIN 3.3 g/dL (3.4-5.0); ALBUMIN/GLOBULIN RATIO 0.9 (1.0-1.7); CALCIUM 8.4 mg/dL (8.5-10.1); CREATININE 0.7 mg/dL (0.7-1.3); GFR 167.6; POTASSIUM 3.6 mmol/L (3.5-5.1); TOTAL BILIRUBIN 0.7 mg/dL (0.2-1.0); TOTAL PROTEIN 6.8 g/dL (6.4-8.2)
[2019-01-25 07:00] VITALS: BP 140/74
[2019-01-25 11:00] VITALS: BP 127/82
--- NOTE | 2019-01-25 14:06 | PDOC ---
PROGRESS NOTES Chief Complaint Chief Complaint Intractable back pain - likely related to pancreatitis, ok for NSAIDs, heating pad. Could try muscle relaxants if necessary Pancreatitis - will keep NPO overnight, pain control, nausea control Transaminitis - with pancreatitis, will consult GI, check for autoimmune effect as tox screen and ETOH use don't sound to be his problem, not on a thiazide, calcium level ok, will check triglycerides as well. Constipation - will give dulcolax prn Smoker - counseled on cessation, wants gum FEN - NPO PPX - SCDs FULL CODE reassess in the am History of Present Illness History of Present Illness Patient laying in bed in no acute distress. Plan of care has been explained detail to him and to his at bedside. No fever no chills no new complaints reported overnight Vitals Vitals Vital Signs Date Time Temp Pulse Resp B/P (MAP) Pulse Ox O2 Delivery O2 Flow Rate FiO2 01/25/19 13:05 96 Room Air 01/25/19 11:00 98.6 65 18 127/82 (97) 98.6 Physical Exam General: Alert, Oriented X3, Cooperative, mild distress Abdomen: Normal bowel sounds, No hepatosplenomegaly, No masses, Other (LUQ and left flank tender) Extremities: No clubbing, No cyanosis, No edema, Normal pulses, No tenderness/swelling Skin: No rashes, No breakdown, No significant lesion Labs LABS Laboratory Tests Test 01/24/19 19:30 01/24/19 19:45 01/24/19 20:00 01/24/19 20:40 Urine Collection Type Unknown Urine Color Yellow Urine Clarity Clear Urine pH 6.5 Urine Specific [place] 1.025 Urine Protein Negative mg/dL (NEG-TRACE) Urine Glucose (UA) Negative mg/dL (NEG) Urine Ketones (Stick) Negative mg/dL (NEG) Urine Blood Negative (NEG) Urine Nitrite Negative (NEG) Urine Bilirubin Negative (NEG) Urine Urobilinogen Dipstick 1.0 mg/dL (0.2 mg/dL) Urine Leukocyte Esterase Negative (NEG) Urine RBC 0 /HPF (0-2) Urine WBC Rare /HPF (0-4) Urine Squamous Epithelial Cells None /LPF Urine Bacteria 0 /HPF (0-FEW) Urine Mucus Slight /LPF White Blood Count 3.9 x10^3/uL (4.0-11.0) Red Blood Count 4.28 x10^6/uL (4.30-5.70) Hemoglobin 14.1 g/dL (13.0-17.5) Hematocrit 40.4 % (39.0-53.0) Mean Corpuscular Volume 94 fL (79-100) Mean Corpuscular Hemoglobin 33 pg (25-35) Mean Corpuscular Hemoglobin Concent 35 g/dL (31-37) Red Cell Distribution Width 12.2 % (11.5-14.5) Platelet Count 174 x10^3/uL (140-400) Neutrophils (%) (Auto) 47 % (31-73) Lymphocytes (%) (Auto) 29 % (24-48) Monocytes (%) (Auto) 23 % (0-9) Eosinophils (%) (Auto) 1 % (0-3) Basophils (%) (Auto) 1 % (0-3) Neutrophils # (Auto) 1.8 x10^3uL (1.8-7.7) Lymphocytes # (Auto) 1.1 x10^3/uL (1.0-4.8) Monocytes # (Auto) 0.9 x10^3/uL (0.0-1.1) Eosinophils # (Auto) 0.1 x10^3/uL (0.0-0.7) Basophils # (Auto) 0.0 x10^3/uL (0.0-0.2) Erythrocyte Sedimentation Rate 10 (0-15) Sodium Level 142 mmol/L (136-145) Potassium Level 3.8 mmol/L (3.5-5.1) Chloride Level 105 mmol/L (98-107) Carbon Dioxide Level 25 mmol/L (21-32) Anion Gap 12 (6-14) Blood Urea Nitrogen 13 mg/dL (8-26) Creatinine 0.9 mg/dL (0.7-1.3) Estimated GFR (Cockcroft-Gault) 125.4 BUN/Creatinine Ratio 14 (6-20) Glucose Level 93 mg/dL (70-99) Calcium Level 9.2 mg/dL (8.5-10.1) Magnesium Level 2.1 mg/dL (1.8-2.4) Ferritin 726 ng/mL (26-388) Total Bilirubin 0.7 mg/dL (0.2-1.0) Aspartate Amino Transf (AST/SGOT) 64 U/L (15-37) Alanine Aminotransferase (ALT/SGPT) 166 U/L (16-63) Alkaline Phosphatase 100 U/L (46-116) C-Reactive Protein, Quantitative 3.3 mg/L (0-3.3) Total Protein 7.8 g/dL (6.4-8.2) Albumin 3.9 g/dL (3.4-5.0) Albumin/Globulin Ratio 1.0 (1.0-1.7) Lipase 981 U/L (73-393) Urine Opiates Screen Neg (NEG) Urine Methadone Screen Neg (NEG) Urine Barbiturates Neg (NEG) Urine Phencyclidine Screen Neg (NEG) Urine Amphetamine/Methamphetamine Neg (NEG) Urine Benzodiazepines Screen Neg (NEG) Urine Cocaine Screen Neg (NEG) Urine Cannabinoids Screen Neg (NEG) Urine Ethyl Alcohol Neg (NEG) Ethyl Alcohol Level < 10 mg/dL (0-10) Test 01/25/19 05:35 Sodium Level 140 mmol/L (136-145) Potassium Level 3.6 mmol/L (3.5-5.1) Chloride Level 105 mmol/L (98-107) Carbon Dioxide Level 23 mmol/L (21-32) Anion Gap 12 (6-14) Blood Urea Nitrogen 9 mg/dL (8-26) Creatinine 0.7 mg/dL (0.7-1.3) Estimated GFR (Cockcroft-Gault) 167.6 BUN/Creatinine Ratio 13 (6-20) Glucose Level 83 mg/dL (70-99) Calcium Level 8.4 mg/dL (8.5-10.1) Total Bilirubin 0.7 mg/dL (0.2-1.0) Aspartate Amino Transf (AST/SGOT) 42 U/L (15-37) Alanine Aminotransferase (ALT/SGPT) 117 U/L (16-63) Alkaline Phosphatase 88 U/L (46-116) Total Protein 6.8 g/dL (6.4-8.2) Albumin 3.3 g/dL (3.4-5.0) Albumin/Globulin Ratio 0.9 (1.0-1.7) Triglycerides Level 36 mg/dL (0-150) Lipase 1208 U/L (73-393) Thyroid Stimulating Hormone (TSH) 0.854 uIU/mL (0.358-3.74) Review of Systems Review of Systems Pertinent as per history of present illness otherwise 14 point review of system is negative Assessment and Plan Assessmemt and Plan Problems Medical Problems: (1) Acute pancreatitis Status: Acute Comment Review of Relevant I have reviewed the following items parag (where applicable) has been applied. Labs Laboratory Tests Test 01/24/19 19:30 01/24/19 19:45 01/24/19 20:00 01/24/19 20:40 Urine Collection Type Unknown Urine Color Yellow Urine Clarity Clear Urine pH 6.5 Urine Specific [place] 1.025 Urine Protein Negative mg/dL (NEG-TRACE) Urine Glucose (UA) Negative mg/dL (NEG) Urine Ketones (Stick) Negative mg/dL (NEG) Urine Blood Negative (NEG) Urine Nitrite Negative (NEG) Urine Bilirubin Negative (NEG) Urine Urobilinogen Dipstick 1.0 mg/dL (0.2 mg/dL) Urine Leukocyte Esterase Negative (NEG) Urine RBC 0 /HPF (0-2) Urine WBC Rare /HPF (0-4) Urine Squamous Epithelial Cells None /LPF Urine Bacteria 0 /HPF (0-FEW) Urine Mucus Slight /LPF White Blood Count 3.9 x10^3/uL (4.0-11.0) Red Blood Count 4.28 x10^6/uL (4.30-5.70) Hemoglobin 14.1 g/dL (13.0-17.5) Hematocrit 40.4 % (39.0-53.0) Mean Corpuscular Volume 94 fL (79-100) Mean Corpuscular Hemoglobin 33 pg (25-35) Mean Corpuscular Hemoglobin Concent 35 g/dL (31-37) Red Cell Distribution Width 12.2 % (11.5-14.5) Platelet Count 174 x10^3/uL (140-400) Neutrophils (%) (Auto) 47 % (31-73) Lymphocytes (%) (Auto) 29 % (24-48) Monocytes (%) (Auto) 23 % (0-9) Eosinophils (%) (Auto) 1 % (0-3) Basophils (%) (Auto) 1 % (0-3) Neutrophils # (Auto) 1.8 x10^3uL (1.8-7.7) Lymphocytes # (Auto) 1.1 x10^3/uL (1.0-4.8) Monocytes # (Auto) 0.9 x10^3/uL (0.0-1.1) Eosinophils # (Auto) 0.1 x10^3/uL (0.0-0.7) Basophils # (Auto) 0.0 x10^3/uL (0.0-0.2) Erythrocyte Sedimentation Rate 10 (0-15) Sodium Level 142 mmol/L (136-145) Potassium Level 3.8 mmol/L (3.5-5.1) Chloride Level 105 mmol/L (98-107) Carbon Dioxide Level 25 mmol/L (21-32) Anion Gap 12 (6-14) Blood Urea Nitrogen 13 mg/dL (8-26) Creatinine 0.9 mg/dL (0.7-1.3) Estimated GFR (Cockcroft-Gault) 125.4 BUN/Creatinine Ratio 14 (6-20) Glucose Level 93 mg/dL (70-99) Calcium Level 9.2 mg/dL (8.5-10.1) Magnesium Level 2.1 mg/dL (1.8-2.4) Ferritin 726 ng/mL (26-388) Total Bilirubin 0.7 mg/dL (0.2-1.0) Aspartate Amino Transf (AST/SGOT) 64 U/L (15-37) Alanine Aminotransferase (ALT/SGPT) 166 U/L (16-63) Alkaline Phosphatase 100 U/L (46-116) C-Reactive Protein, Quantitative 3.3 mg/L (0-3.3) Total Protein 7.8 g/dL (6.4-8.2) Albumin 3.9 g/dL (3.4-5.0) Albumin/Globulin Ratio 1.0 (1.0-1.7) Lipase 981 U/L (73-393) Urine Opiates Screen Neg (NEG) Urine Methadone Screen Neg (NEG) Urine Barbiturates Neg (NEG) Urine Phencyclidine Screen Neg (NEG) Urine Amphetamine/Methamphetamine Neg (NEG) Urine Benzodiazepines Screen Neg (NEG) Urine Cocaine Screen Neg (NEG) Urine Cannabinoids Screen Neg (NEG) Urine Ethyl Alcohol Neg (NEG) Ethyl Alcohol Level < 10 mg/dL (0-10) Test 01/25/19 05:35 Sodium Level 140 mmol/L (136-145) Potassium Level 3.6 mmol/L (3.5-5.1) Chloride Level 105 mmol/L (98-107) Carbon Dioxide Level 23 mmol/L (21-32) Anion Gap 12 (6-14) Blood Urea Nitrogen 9 mg/dL (8-26) Creatinine 0.7 mg/dL (0.7-1.3) Estimated GFR (Cockcroft-Gault) 167.6 BUN/Creatinine Ratio 13 (6-20) Glucose Level 83 mg/dL (70-99) Calcium Level 8.4 mg/dL (8.5-10.1) Total Bilirubin 0.7 mg/dL (0.2-1.0) Aspartate Amino Transf (AST/SGOT) 42 U/L (15-37) Alanine Aminotransferase (ALT/SGPT) 117 U/L (16-63) Alkaline Phosphatase 88 U/L (46-116) Total Protein 6.8 g/dL (6.4-8.2) Albumin 3.3 g/dL (3.4-5.0) Albumin/Globulin Ratio 0.9 (1.0-1.7) Triglycerides Level 36 mg/dL (0-150) Lipase 1208 U/L (73-393) Thyroid Stimulating Hormone (TSH) 0.854 uIU/mL (0.358-3.74) Laboratory Tests Test 01/24/19 19:30 01/24/19 19:45 01/24/19 20:00 01/24/19 20:40 Urine Collection Type Unknown Urine Color Yellow Urine Clarity Clear Urine pH 6.5 Urine Specific [place] 1.025 Urine Protein Negative mg/dL (NEG-TRACE) Urine Glucose (UA) Negative mg/dL (NEG) Urine Ketones (Stick) Negative mg/dL (NEG) Urine Blood Negative (NEG) Urine Nitrite Negative (NEG) Urine Bilirubin Negative (NEG) Urine Urobilinogen Dipstick 1.0 mg/dL (0.2 mg/dL) Urine Leukocyte Esterase Negative (NEG) Urine RBC 0 /HPF (0-2) Urine WBC Rare /HPF (0-4) Urine Squamous Epithelial Cells None /LPF Urine Bacteria 0 /HPF (0-FEW) Urine Mucus Slight /LPF White Blood Count 3.9 x10^3/uL (4.0-11.0) Red Blood Count 4.28 x10^6/uL (4.30-5.70) Hemoglobin 14.1 g/dL (13.0-17.5) Hematocrit 40.4 % (39.0-53.0) Mean Corpuscular Volume 94 fL (79-100) Mean Corpuscular Hemoglobin 33 pg (25-35) Mean Corpuscular Hemoglobin Concent 35 g/dL (31-37) Red Cell Distribution Width 12.2 % (11.5-14.5) Platelet Count 174 x10^3/uL (140-400) Neutrophils (%) (Auto) 47 % (31-73) Lymphocytes (%) (Auto) 29 % (24-48) Monocytes (%) (Auto) 23 % (0-9) Eosinophils (%) (Auto) 1 % (0-3) Basophils (%) (Auto) 1 % (0-3) Neutrophils # (Auto) 1.8 x10^3uL (1.8-7.7) Lymphocytes # (Auto) 1.1 x10^3/uL (1.0-4.8) Monocytes # (Auto) 0.9 x10^3/uL (0.0-1.1) Eosinophils # (Auto) 0.1 x10^3/uL (0.0-0.7) Basophils # (Auto) 0.0 x10^3/uL (0.0-0.2) Erythrocyte Sedimentation Rate 10 (0-15) Sodium Level 142 mmol/L (136-145) Potassium Level 3.8 mmol/L (3.5-5.1) Chloride Level 105 mmol/L (98-107) Carbon Dioxide Level 25 mmol/L (21-32) Anion Gap 12 (6-14) Blood Urea Nitrogen 13 mg/dL (8-26) Creatinine 0.9 mg/dL (0.7-1.3) Estimated GFR (Cockcroft-Gault) 125.4 BUN/Creatinine Ratio 14 (6-20) Glucose Level 93 mg/dL (70-99) Calcium Level 9.2 mg/dL (8.5-10.1) Magnesium Level 2.1 mg/dL (1.8-2.4) Ferritin 726 ng/mL (26-388) Total Bilirubin 0.7 mg/dL (0.2-1.0) Aspartate Amino Transf (AST/SGOT) 64 U/L (15-37) Alanine Aminotransferase (ALT/SGPT) 166 U/L (16-63) Alkaline Phosphatase 100 U/L (46-116) C-Reactive Protein, Quantitative 3.3 mg/L (0-3.3) Total Protein 7.8 g/dL (6.4-8.2) Albumin 3.9 g/dL (3.4-5.0) Albumin/Globulin Ratio 1.0 (1.0-1.7) Lipase 981 U/L (73-393) Urine Opiates Screen Neg (NEG) Urine Methadone Screen Neg (NEG) Urine Barbiturates Neg (NEG) Urine Phencyclidine Screen Neg (NEG) Urine Amphetamine/Methamphetamine Neg (NEG) Urine Benzodiazepines Screen Neg (NEG) Urine Cocaine Screen Neg (NEG) Urine Cannabinoids Screen Neg (NEG) Urine Ethyl Alcohol Neg (NEG) Ethyl Alcohol Level < 10 mg/dL (0-10) Test 01/25/19 05:35 Sodium Level 140 mmol/L (136-145) Potassium Level 3.6 mmol/L (3.5-5.1) Chloride Level 105 mmol/L (98-107) Carbon Dioxide Level 23 mmol/L (21-32) Anion Gap 12 (6-14) Blood Urea Nitrogen 9 mg/dL (8-26) Creatinine 0.7 mg/dL (0.7-1.3) Estimated GFR (Cockcroft-Gault) 167.6 BUN/Creatinine Ratio 13 (6-20) Glucose Level 83 mg/dL (70-99) Calcium Level 8.4 mg/dL (8.5-10.1) Total Bilirubin 0.7 mg/dL (0.2-1.0) Aspartate Amino Transf (AST/SGOT) 42 U/L (15-37) Alanine Aminotransferase (ALT/SGPT) 117 U/L (16-63) Alkaline Phosphatase 88 U/L (46-116) Total Protein 6.8 g/dL (6.4-8.2) Albumin 3.3 g/dL (3.4-5.0) Albumin/Globulin Ratio 0.9 (1.0-1.7) Triglycerides Level 36 mg/dL (0-150) Lipase 1208 U/L (73-393) Thyroid Stimulating Hormone (TSH) 0.854 uIU/mL (0.358-3.74) Medications Current Medications Famotidine (Pepcid Vial) 20 mg 1X ONCE IVP Last administered on 01/24/19at 19:55; Start 01/24/19 at 19:45; Stop 01/24/19 at 19:46; Status DC Ketorolac Tromethamine (Toradol 30mg Vial) 15 mg 1X ONCE IV Last administered on 01/24/19at 19:56; Start 01/24/19 at 19:45; Stop 01/24/19 at 19:46; Status DC Sodium Chloride 1,000 ml @ 1,000 mls/hr 1X ONCE IV Last administered on 01/24/19at 19:55; Start 01/24/19 at 19:45; Stop 01/24/19 at 20:44; Status DC Ondansetron HCl (Zofran) 4 mg PRN Q8HRS PRN IV NAUSEA/VOMITING Last administered on 01/24/19at 21:29; Start 01/24/19 at 21:00; Stop 01/26/19 at 20:58 Fentanyl Citrate (Fentanyl 2ml Vial) 50 mcg Q2HR PRN IV PAIN Last administered on 01/24/19at 21:30; Start 01/24/19 at 21:00; Stop 01/24/19 at 23:42; Status DC Iohexol (Omnipaque 300 Mg/ml) 75 ml 1X ONCE IV Last administered on 01/24/19at 22:51; Start 01/24/19 at 21:15; Stop 01/24/19 at 21:16; Status DC Iohexol (Omnipaque 240 Mg/ml) 30 ml 1X ONCE PO Last administered on 01/24/19at 22:51; Start 01/24/19 at 21:15; Stop 01/24/19 at 21:16; Status DC Info (CONTRAST GIVEN -- Rx MONITORING) 1 each PRN DAILY PRN MC SEE COMMENTS; Start 01/24/19 at 21:30; Stop 01/26/19 at 21:29 Ketorolac Tromethamine (Toradol 15mg Vial) 15 mg PRN Q6HRS PRN IV MILD PAIN 1-3 Last administered on 01/25/19at 09:07; Start 01/24/19 at 23:45; Stop 01/29/19 at 23:44 Ringer's Solution 1,000 ml @ 100 mls/hr Q10H IV Last administered on 01/25/19at 10:30; Start 01/24/19 at 23:45 Bisacodyl (Dulcolax Supp) 10 mg PRN DAILY PRN MO CONSTIPATION; Start 01/24/19 at 23:45 Nicotine Polacrilex (Nicorette Gum) 1 each PRN Q1HR PRN BC SMOKING CESSATION; Start 01/24/19 at 23:45 Fentanyl Citrate (Fentanyl 2ml Vial) 50 mcg PRN Q2HR PRN IV MODERATE, SEVERE PAIN Last administered on 01/25/19at 12:34; Start 01/24/19 at 23:45 Active Scripts Active Bactrim Ds Tablet (Sulfamethoxazole/Trimethoprim) 1 Each Tablet 1 Tab PO BID Cyril 5-325 Tablet (Acetaminophen/Hydrocodone Bitart) 1 Each Tablet 1-2 Tab PO Q4-6HRS Ciprodex Otic Suspension (Ciprofloxacin Hcl/Dexameth) 7.5 Ml Drops.susp 4 Drop LEFT EAR BID 7 Days Amoxicillin 875 Mg Tablet 1 Tab PO BID 10 Days Ocuflox (Ofloxacin) 5 Ml Drops 1-[address] in the left eye for the next 7 days Vitals/I & O Vital Sign - Last 24 Hours 01/24/19 01/24/19 01/24/19 01/25/19 19:20 21:30 23:30 00:06 Temp 98.9 98.1 98.9 98.1 Pulse 82 72 Resp 18 18 18 16 B/P (MAP) 136/93 (107) 135/99 (111) Pulse Ox 100 100 100 O2 Delivery Room Air Room Air Room Air Room Air 01/25/19 01/25/19 01/25/19 01/25/19 00:30 02:11 03:00 05:50 Temp 97.6 97.6 Pulse 80 Resp 18 16 B/P (MAP) 139/102 (114) Pulse Ox 96 O2 Delivery Room Air Room Air Room Air Room Air 01/25/19 01/25/19 01/25/19 01/25/19 06:28 07:00 08:14 08:15 Temp 98.4 98.4 Pulse 45 Resp 16 18 B/P (MAP) 140/74 (96) Pulse Ox 100 96 O2 Delivery Room Air Room Air Room Air 01/25/19 01/25/19 01/25/19 01/25/19 10:31 11:00 12:34 13:05 Temp 98.6 98.6 Pulse 65 Resp 18 B/P (MAP) 127/82 (97) Pulse Ox 100 96 96 O2 Delivery Room Air Room Air Room Air Room Air Intake and Output 01/24/19 01/24/19 01/25/19 15:00 23:00 07:00 Intake Total 1000 ml 0 ml Balance 1000 ml 0 ml JESSICA BROOKS MD Jan 25, 2019 14:06
--- NOTE | 2019-01-25 14:28 | PDOC ---
G I PROGRESS NOTE Reason for Follow-up Abd pain/recurrent pancreatitis Subjective Feeling better Physical Exam Lungs clear CV S1 S2 ABD +BS, soft, mild tenderness to palpation Review of Relevant I have reviewed the following items parag (where applicable) has been applied. Labs Laboratory Tests Test 01/24/19 19:30 01/24/19 19:45 01/24/19 20:00 01/24/19 20:40 Urine Collection Type Unknown Urine Color Yellow Urine Clarity Clear Urine pH 6.5 Urine Specific [place] 1.025 Urine Protein Negative mg/dL (NEG-TRACE) Urine Glucose (UA) Negative mg/dL (NEG) Urine Ketones (Stick) Negative mg/dL (NEG) Urine Blood Negative (NEG) Urine Nitrite Negative (NEG) Urine Bilirubin Negative (NEG) Urine Urobilinogen Dipstick 1.0 mg/dL (0.2 mg/dL) Urine Leukocyte Esterase Negative (NEG) Urine RBC 0 /HPF (0-2) Urine WBC Rare /HPF (0-4) Urine Squamous Epithelial Cells None /LPF Urine Bacteria 0 /HPF (0-FEW) Urine Mucus Slight /LPF White Blood Count 3.9 x10^3/uL (4.0-11.0) Red Blood Count 4.28 x10^6/uL (4.30-5.70) Hemoglobin 14.1 g/dL (13.0-17.5) Hematocrit 40.4 % (39.0-53.0) Mean Corpuscular Volume 94 fL (79-100) Mean Corpuscular Hemoglobin 33 pg (25-35) Mean Corpuscular Hemoglobin Concent 35 g/dL (31-37) Red Cell Distribution Width 12.2 % (11.5-14.5) Platelet Count 174 x10^3/uL (140-400) Neutrophils (%) (Auto) 47 % (31-73) Lymphocytes (%) (Auto) 29 % (24-48) Monocytes (%) (Auto) 23 % (0-9) Eosinophils (%) (Auto) 1 % (0-3) Basophils (%) (Auto) 1 % (0-3) Neutrophils # (Auto) 1.8 x10^3uL (1.8-7.7) Lymphocytes # (Auto) 1.1 x10^3/uL (1.0-4.8) Monocytes # (Auto) 0.9 x10^3/uL (0.0-1.1) Eosinophils # (Auto) 0.1 x10^3/uL (0.0-0.7) Basophils # (Auto) 0.0 x10^3/uL (0.0-0.2) Erythrocyte Sedimentation Rate 10 (0-15) Sodium Level 142 mmol/L (136-145) Potassium Level 3.8 mmol/L (3.5-5.1) Chloride Level 105 mmol/L (98-107) Carbon Dioxide Level 25 mmol/L (21-32) Anion Gap 12 (6-14) Blood Urea Nitrogen 13 mg/dL (8-26) Creatinine 0.9 mg/dL (0.7-1.3) Estimated GFR (Cockcroft-Gault) 125.4 BUN/Creatinine Ratio 14 (6-20) Glucose Level 93 mg/dL (70-99) Calcium Level 9.2 mg/dL (8.5-10.1) Magnesium Level 2.1 mg/dL (1.8-2.4) Ferritin 726 ng/mL (26-388) Total Bilirubin 0.7 mg/dL (0.2-1.0) Aspartate Amino Transf (AST/SGOT) 64 U/L (15-37) Alanine Aminotransferase (ALT/SGPT) 166 U/L (16-63) Alkaline Phosphatase 100 U/L (46-116) C-Reactive Protein, Quantitative 3.3 mg/L (0-3.3) Total Protein 7.8 g/dL (6.4-8.2) Albumin 3.9 g/dL (3.4-5.0) Albumin/Globulin Ratio 1.0 (1.0-1.7) Lipase 981 U/L (73-393) Urine Opiates Screen Neg (NEG) Urine Methadone Screen Neg (NEG) Urine Barbiturates Neg (NEG) Urine Phencyclidine Screen Neg (NEG) Urine Amphetamine/Methamphetamine Neg (NEG) Urine Benzodiazepines Screen Neg (NEG) Urine Cocaine Screen Neg (NEG) Urine Cannabinoids Screen Neg (NEG) Urine Ethyl Alcohol Neg (NEG) Ethyl Alcohol Level < 10 mg/dL (0-10) Test 01/25/19 05:35 Sodium Level 140 mmol/L (136-145) Potassium Level 3.6 mmol/L (3.5-5.1) Chloride Level 105 mmol/L (98-107) Carbon Dioxide Level 23 mmol/L (21-32) Anion Gap 12 (6-14) Blood Urea Nitrogen 9 mg/dL (8-26) Creatinine 0.7 mg/dL (0.7-1.3) Estimated GFR (Cockcroft-Gault) 167.6 BUN/Creatinine Ratio 13 (6-20) Glucose Level 83 mg/dL (70-99) Calcium Level 8.4 mg/dL (8.5-10.1) Total Bilirubin 0.7 mg/dL (0.2-1.0) Aspartate Amino Transf (AST/SGOT) 42 U/L (15-37) Alanine Aminotransferase (ALT/SGPT) 117 U/L (16-63) Alkaline Phosphatase 88 U/L (46-116) Total Protein 6.8 g/dL (6.4-8.2) Albumin 3.3 g/dL (3.4-5.0) Albumin/Globulin Ratio 0.9 (1.0-1.7) Triglycerides Level 36 mg/dL (0-150) Lipase 1208 U/L (73-393) Thyroid Stimulating Hormone (TSH) 0.854 uIU/mL (0.358-3.74) Laboratory Tests Test 01/24/19 19:30 01/24/19 19:45 01/24/19 20:00 01/24/19 20:40 Urine Collection Type Unknown Urine Color Yellow Urine Clarity Clear Urine pH 6.5 Urine Specific [place] 1.025 Urine Protein Negative mg/dL (NEG-TRACE) Urine Glucose (UA) Negative mg/dL (NEG) Urine Ketones (Stick) Negative mg/dL (NEG) Urine Blood Negative (NEG) Urine Nitrite Negative (NEG) Urine Bilirubin Negative (NEG) Urine Urobilinogen Dipstick 1.0 mg/dL (0.2 mg/dL) Urine Leukocyte Esterase Negative (NEG) Urine RBC 0 /HPF (0-2) Urine WBC Rare /HPF (0-4) Urine Squamous Epithelial Cells None /LPF Urine Bacteria 0 /HPF (0-FEW) Urine Mucus Slight /LPF White Blood Count 3.9 x10^3/uL (4.0-11.0) Red Blood Count 4.28 x10^6/uL (4.30-5.70) Hemoglobin 14.1 g/dL (13.0-17.5) Hematocrit 40.4 % (39.0-53.0) Mean Corpuscular Volume 94 fL (79-100) Mean Corpuscular Hemoglobin 33 pg (25-35) Mean Corpuscular Hemoglobin Concent 35 g/dL (31-37) Red Cell Distribution Width 12.2 % (11.5-14.5) Platelet Count 174 x10^3/uL (140-400) Neutrophils (%) (Auto) 47 % (31-73) Lymphocytes (%) (Auto) 29 % (24-48) Monocytes (%) (Auto) 23 % (0-9) Eosinophils (%) (Auto) 1 % (0-3) Basophils (%) (Auto) 1 % (0-3) Neutrophils # (Auto) 1.8 x10^3uL (1.8-7.7) Lymphocytes # (Auto) 1.1 x10^3/uL (1.0-4.8) Monocytes # (Auto) 0.9 x10^3/uL (0.0-1.1) Eosinophils # (Auto) 0.1 x10^3/uL (0.0-0.7) Basophils # (Auto) 0.0 x10^3/uL (0.0-0.2) Erythrocyte Sedimentation Rate 10 (0-15) Sodium Level 142 mmol/L (136-145) Potassium Level 3.8 mmol/L (3.5-5.1) Chloride Level 105 mmol/L (98-107) Carbon Dioxide Level 25 mmol/L (21-32) Anion Gap 12 (6-14) Blood Urea Nitrogen 13 mg/dL (8-26) Creatinine 0.9 mg/dL (0.7-1.3) Estimated GFR (Cockcroft-Gault) 125.4 BUN/Creatinine Ratio 14 (6-20) Glucose Level 93 mg/dL (70-99) Calcium Level 9.2 mg/dL (8.5-10.1) Magnesium Level 2.1 mg/dL (1.8-2.4) Ferritin 726 ng/mL (26-388) Total Bilirubin 0.7 mg/dL (0.2-1.0) Aspartate Amino Transf (AST/SGOT) 64 U/L (15-37) Alanine Aminotransferase (ALT/SGPT) 166 U/L (16-63) Alkaline Phosphatase 100 U/L (46-116) C-Reactive Protein, Quantitative 3.3 mg/L (0-3.3) Total Protein 7.8 g/dL (6.4-8.2) Albumin 3.9 g/dL (3.4-5.0) Albumin/Globulin Ratio 1.0 (1.0-1.7) Lipase 981 U/L (73-393) Urine Opiates Screen Neg (NEG) Urine Methadone Screen Neg (NEG) Urine Barbiturates Neg (NEG) Urine Phencyclidine Screen Neg (NEG) Urine Amphetamine/Methamphetamine Neg (NEG) Urine Benzodiazepines Screen Neg (NEG) Urine Cocaine Screen Neg (NEG) Urine Cannabinoids Screen Neg (NEG) Urine Ethyl Alcohol Neg (NEG) Ethyl Alcohol Level < 10 mg/dL (0-10) Test 01/25/19 05:35 Sodium Level 140 mmol/L (136-145) Potassium Level 3.6 mmol/L (3.5-5.1) Chloride Level 105 mmol/L (98-107) Carbon Dioxide Level 23 mmol/L (21-32) Anion Gap 12 (6-14) Blood Urea Nitrogen 9 mg/dL (8-26) Creatinine 0.7 mg/dL (0.7-1.3) Estimated GFR (Cockcroft-Gault) 167.6 BUN/Creatinine Ratio 13 (6-20) Glucose Level 83 mg/dL (70-99) Calcium Level 8.4 mg/dL (8.5-10.1) Total Bilirubin 0.7 mg/dL (0.2-1.0) Aspartate Amino Transf (AST/SGOT) 42 U/L (15-37) Alanine Aminotransferase (ALT/SGPT) 117 U/L (16-63) Alkaline Phosphatase 88 U/L (46-116) Total Protein 6.8 g/dL (6.4-8.2) Albumin 3.3 g/dL (3.4-5.0) Albumin/Globulin Ratio 0.9 (1.0-1.7) Triglycerides Level 36 mg/dL (0-150) Lipase 1208 U/L (73-393) Thyroid Stimulating Hormone (TSH) 0.854 uIU/mL (0.358-3.74) Medications Current Medications Famotidine (Pepcid Vial) 20 mg 1X ONCE IVP Last administered on 01/24/19 19:55; Start 01/24/19 at 19:45; Stop 01/24/19 at 19:46; Status DC Ketorolac Tromethamine (Toradol 30mg Vial) 15 mg 1X ONCE IV Last administered on 01/24/19at 19:56; Start 01/24/19 at 19:45; Stop 01/24/19 at 19:46; Status DC Sodium Chloride 1,000 ml @ 1,000 mls/hr 1X ONCE IV Last administered on 01/24/19at 19:55; Start 01/24/19 at 19:45; Stop 01/24/19 at 20:44; Status DC Ondansetron HCl (Zofran) 4 mg PRN Q8HRS PRN IV NAUSEA/VOMITING Last administered on 01/24/19 21:29; Start 01/24/19 at 21:00; Stop 01/26/19 at 20:58 Fentanyl Citrate (Fentanyl 2ml Vial) 50 mcg Q2HR PRN IV PAIN Last administered on 01/24/19 21:30; Start 01/24/19 at 21:00; Stop 01/24/19 at 23:42; Status DC Iohexol (Omnipaque 300 Mg/ml) 75 ml 1X ONCE IV Last administered on 01/24/19 22:51; Start 01/24/19 at 21:15; Stop 01/24/19 at 21:16; Status DC Iohexol (Omnipaque 240 Mg/ml) 30 ml 1X ONCE PO Last administered on 01/24/19at 22:51; Start 01/24/19 at 21:15; Stop 01/24/19 at 21:16; Status DC Info (CONTRAST GIVEN -- Rx MONITORING) 1 each PRN DAILY PRN MC SEE COMMENTS; Start 01/24/19 at 21:30; Stop 01/26/19 at 21:29 Ketorolac Tromethamine (Toradol 15mg Vial) 15 mg PRN Q6HRS PRN IV MILD PAIN 1-3 Last administered on 01/25/19 09:07; Start 01/24/19 at 23:45; Stop 01/29/19 at 23:44 Ringer's Solution 1,000 ml @ 100 mls/hr Q10H IV Last administered on 01/25/19at 10:30; Start 01/24/19 at 23:45 Bisacodyl (Dulcolax Supp) 10 mg PRN DAILY PRN [place] CONSTIPATION; Start 01/24/19 at 23:45 Nicotine Polacrilex (Nicorette Gum) 1 each PRN Q1HR PRN BC SMOKING CESSATION; Start 01/24/19 at 23:45 Fentanyl Citrate (Fentanyl 2ml Vial) 50 mcg PRN Q2HR PRN IV MODERATE, SEVERE PAIN Last administered on 01/25/19at 12:34; Start 01/24/19 at 23:45 Active Scripts Active Bactrim Ds Tablet (Sulfamethoxazole/Trimethoprim) 1 Each Tablet 1 Tab PO BID [place] 5-325 Tablet (Acetaminophen/Hydrocodone Bitart) 1 Each Tablet 1-2 Tab PO Q4-6HRS Ciprodex Otic Suspension (Ciprofloxacin Hcl/Dexameth) 7.5 Ml Drops.susp 4 Drop LEFT EAR BID 7 Days Amoxicillin 875 Mg Tablet 1 Tab PO BID 10 Days Ocuflox (Ofloxacin) 5 Ml Drops 1-[address] in the left eye for the next 7 days Vitals/I & O Vital Sign - Last 24 Hours 01/24/19 01/24/19 01/24/19 01/25/19 19:20 21:30 23:30 00:06 Temp 98.9 98.1 98.9 98.1 Pulse 82 72 Resp 18 18 18 16 B/P (MAP) 136/93 (107) 135/99 (111) Pulse Ox 100 100 100 O2 Delivery Room Air Room Air Room Air Room Air 01/25/19 01/25/19 01/25/19 01/25/19 00:30 02:11 03:00 05:50 Temp 97.6 97.6 Pulse 80 Resp 18 16 B/P (MAP) 139/102 (114) Pulse Ox 96 O2 Delivery Room Air Room Air Room Air Room Air 01/25/19 01/25/19 01/25/19 01/25/19 06:28 07:00 08:14 08:15 Temp 98.4 98.4 Pulse 45 Resp 16 18 B/P (MAP) 140/74 (96) Pulse Ox 100 96 O2 Delivery Room Air Room Air Room Air 01/25/19 01/25/19 01/25/19 01/25/19 10:31 11:00 12:34 13:05 Temp 98.6 98.6 Pulse 65 Resp 18 B/P (MAP) 127/82 (97) Pulse Ox 100 96 96 O2 Delivery Room Air Room Air Room Air Room Air Intake and Output 01/24/19 01/24/19 01/25/19 15:00 23:00 07:00 Intake Total 1000 ml 0 ml Balance 1000 ml 0 ml Problem List Problems Medical Problems: (1) Acute pancreatitis Status: Acute Assessment Recurrent pancreatitis- etiology to be determined. microlithiasis and/or alcohol abuse lead differential. Plan advance diet/serial enzymes US liver/gb in am KAYLIE QUEEN MD Jan 25, 2019 14:28
[2019-01-25 15:00] VITALS: BP 130/70
[2019-01-25] MEDS: NICOTINE 21MG PATCH. TD SCH (18:15)
[2019-01-25] MEDS: NICOTINE POLACRILEX 2MG GUM PACKAGE of 12. BC PRN ×2 (18:22→20:39)
[2019-01-25 19:00] VITALS: BP 144/103
[2019-01-25 23:00] VITALS: BP 131/92
[2019-01-26 03:00] VITALS: BP 139/91
[2019-01-26] MEDS: KETOROLAC 15 MG/ML VIAL. IV PRN (03:43)
[2019-01-26 07:00] VITALS: BP 115/71
--- NOTE | 2019-01-26 08:42 | RAD ---
EXAM: ABDOMINAL ULTRASOUND. HISTORY: Pancreatitis, abdominal pain. COMPARISON: 01/24/2019. FINDINGS: Sonographic evaluation of the abdomen was performed. Hyperechogenicity of the hepatic parenchyma is consistent with diffuse hepatic steatosis. This lowers sensitivity for focal lesions. None are seen. The spleen measures 8.5 cm. The gallbladder is unremarkable without evidence of stones, wall thickening or pericholecystic fluid. There is no sonographic Baxter sign. The common duct measures 4 mm. The visualized portions of the head of the pancreas reveal no abnormality. The remainder is obscured. There is no clear peripancreatic fluid collection. The right kidney measures 9.7 cm. Cortical thickness and echogenicity are preserved. There is no hydronephrosis. The left kidney measures 10.4 cm. Cortical thickness and echogenicity are preserved. There is no hydronephrosis. The visualized portions of the abdominal aorta and inferior vena cava are grossly patent and normal in caliber. IMPRESSION: 1. Limited visualization of the pancreas reveals no fluid collection or other complication of pancreatitis. 2. No gallstones or biliary dilatation. 3. Diffuse hepatic steatosis.
[2019-01-26] MEDS: NICOTINE POLACRILEX 2MG GUM PACKAGE of 12. BC PRN (08:53)
[2019-01-26] MEDS: IV RINGERS,LACTATED 1000ML 1,000 ML IV SCH (08:54)
[2019-01-26] MEDS: fentaNYL PF VIAL 100 MCG/2 ML VIAL IV PRN ×2 (08:58→13:05)
[2019-01-26] MEDS: NICOTINE 21MG PATCH. TD SCH (09:00)
--- NOTE | 2019-01-26 09:12 | PDOC ---
PROGRESS NOTES Chief Complaint Chief Complaint Intractable back pain - l w./ acute pancreatitis, ok for NSAIDs, Pancreatitis - advised to never drink EtOH, GI follwing, autoimmune poss Transaminitis - viral infection possible, levels better, Constipation Smoker - History of Present Illness History of Present Illness he reports pain is better advance diet, terry pending cont current may try to DC soon Vitals Vitals Vital Signs Date Time Temp Pulse Resp B/P (MAP) Pulse Ox O2 Delivery O2 Flow Rate FiO2 01/26/19 08:58 Room Air 01/26/19 07:00 98.9 77 18 115/71 (86) 98 98.9 Physical Exam General: Alert, Oriented X3, Cooperative, mild distress Abdomen: Normal bowel sounds, No hepatosplenomegaly, No masses, Other (LUQ and left flank tender) Extremities: No clubbing, No cyanosis, No edema, Normal pulses, No tenderness/swelling Skin: No rashes, No breakdown, No significant lesion Assessment and Plan Assessmemt and Plan Problems Medical Problems: (1) Acute pancreatitis Status: Acute Comment Review of Relevant I have reviewed the following items parag (where applicable) has been applied. Labs Laboratory Tests Test 01/24/19 19:30 01/24/19 19:45 01/24/19 20:00 01/24/19 20:40 Urine Collection Type Unknown Urine Color Yellow Urine Clarity Clear Urine pH 6.5 Urine Specific [place] 1.025 Urine Protein Negative mg/dL (NEG-TRACE) Urine Glucose (UA) Negative mg/dL (NEG) Urine Ketones (Stick) Negative mg/dL (NEG) Urine Blood Negative (NEG) Urine Nitrite Negative (NEG) Urine Bilirubin Negative (NEG) Urine Urobilinogen Dipstick 1.0 mg/dL (0.2 mg/dL) Urine Leukocyte Esterase Negative (NEG) Urine RBC 0 /HPF (0-2) Urine WBC Rare /HPF (0-4) Urine Squamous Epithelial Cells None /LPF Urine Bacteria 0 /HPF (0-FEW) Urine Mucus Slight /LPF White Blood Count 3.9 x10^3/uL (4.0-11.0) Red Blood Count 4.28 x10^6/uL (4.30-5.70) Hemoglobin 14.1 g/dL (13.0-17.5) Hematocrit 40.4 % (39.0-53.0) Mean Corpuscular Volume 94 fL (79-100) Mean Corpuscular Hemoglobin 33 pg (25-35) Mean Corpuscular Hemoglobin Concent 35 g/dL (31-37) Red Cell Distribution Width 12.2 % (11.5-14.5) Platelet Count 174 x10^3/uL (140-400) Neutrophils (%) (Auto) 47 % (31-73) Lymphocytes (%) (Auto) 29 % (24-48) Monocytes (%) (Auto) 23 % (0-9) Eosinophils (%) (Auto) 1 % (0-3) Basophils (%) (Auto) 1 % (0-3) Neutrophils # (Auto) 1.8 x10^3uL (1.8-7.7) Lymphocytes # (Auto) 1.1 x10^3/uL (1.0-4.8) Monocytes # (Auto) 0.9 x10^3/uL (0.0-1.1) Eosinophils # (Auto) 0.1 x10^3/uL (0.0-0.7) Basophils # (Auto) 0.0 x10^3/uL (0.0-0.2) Erythrocyte Sedimentation Rate 10 (0-15) Sodium Level 142 mmol/L (136-145) Potassium Level 3.8 mmol/L (3.5-5.1) Chloride Level 105 mmol/L (98-107) Carbon Dioxide Level 25 mmol/L (21-32) Anion Gap 12 (6-14) Blood Urea Nitrogen 13 mg/dL (8-26) Creatinine 0.9 mg/dL (0.7-1.3) Estimated GFR (Cockcroft-Gault) 125.4 BUN/Creatinine Ratio 14 (6-20) Glucose Level 93 mg/dL (70-99) Calcium Level 9.2 mg/dL (8.5-10.1) Magnesium Level 2.1 mg/dL (1.8-2.4) Ferritin 726 ng/mL (26-388) Total Bilirubin 0.7 mg/dL (0.2-1.0) Aspartate Amino Transf (AST/SGOT) 64 U/L (15-37) Alanine Aminotransferase (ALT/SGPT) 166 U/L (16-63) Alkaline Phosphatase 100 U/L (46-116) C-Reactive Protein, Quantitative 3.3 mg/L (0-3.3) Total Protein 7.8 g/dL (6.4-8.2) Albumin 3.9 g/dL (3.4-5.0) Albumin/Globulin Ratio 1.0 (1.0-1.7) Lipase 981 U/L (73-393) Urine Opiates Screen Neg (NEG) Urine Methadone Screen Neg (NEG) Urine Barbiturates Neg (NEG) Urine Phencyclidine Screen Neg (NEG) Urine Amphetamine/Methamphetamine Neg (NEG) Urine Benzodiazepines Screen Neg (NEG) Urine Cocaine Screen Neg (NEG) Urine Cannabinoids Screen Neg (NEG) Urine Ethyl Alcohol Neg (NEG) Ethyl Alcohol Level < 10 mg/dL (0-10) Test 01/25/19 05:35 Sodium Level 140 mmol/L (136-145) Potassium Level 3.6 mmol/L (3.5-5.1) Chloride Level 105 mmol/L (98-107) Carbon Dioxide Level 23 mmol/L (21-32) Anion Gap 12 (6-14) Blood Urea Nitrogen 9 mg/dL (8-26) Creatinine 0.7 mg/dL (0.7-1.3) Estimated GFR (Cockcroft-Gault) 167.6 BUN/Creatinine Ratio 13 (6-20) Glucose Level 83 mg/dL (70-99) Calcium Level 8.4 mg/dL (8.5-10.1) Total Bilirubin 0.7 mg/dL (0.2-1.0) Aspartate Amino Transf (AST/SGOT) 42 U/L (15-37) Alanine Aminotransferase (ALT/SGPT) 117 U/L (16-63) Alkaline Phosphatase 88 U/L (46-116) Total Protein 6.8 g/dL (6.4-8.2) Albumin 3.3 g/dL (3.4-5.0) Albumin/Globulin Ratio 0.9 (1.0-1.7) Triglycerides Level 36 mg/dL (0-150) Lipase 1208 U/L (73-393) Thyroid Stimulating Hormone (TSH) 0.854 uIU/mL (0.358-3.74) Medications Current Medications Famotidine (Pepcid Vial) 20 mg 1X ONCE IVP Last administered on 01/24/19at 19:55; Start 01/24/19 at 19:45; Stop 01/24/19 at 19:46; Status DC Ketorolac Tromethamine (Toradol 30mg Vial) 15 mg 1X ONCE IV Last administered on 01/24/19at 19:56; Start 01/24/19 at 19:45; Stop 01/24/19 at 19:46; Status DC Sodium Chloride 1,000 ml @ 1,000 mls/hr 1X ONCE IV Last administered on 01/24/19at 19:55; Start 01/24/19 at 19:45; Stop 01/24/19 at 20:44; Status DC Ondansetron HCl (Zofran) 4 mg PRN Q8HRS PRN IV NAUSEA/VOMITING Last administered on 01/24/19at 21:29; Start 01/24/19 at 21:00; Stop 01/26/19 at 20:58 Fentanyl Citrate (Fentanyl 2ml Vial) 50 mcg Q2HR PRN IV PAIN Last administered on 01/24/19at 21:30; Start 01/24/19 at 21:00; Stop 01/24/19 at 23:42; Status DC Iohexol (Omnipaque 300 Mg/ml) 75 ml 1X ONCE IV Last administered on 01/24/19at 22:51; Start 01/24/19 at 21:15; Stop 01/24/19 at 21:16; Status DC Iohexol (Omnipaque 240 Mg/ml) 30 ml 1X ONCE PO Last administered on 01/24/19at 22:51; Start 01/24/19 at 21:15; Stop 01/24/19 at 21:16; Status DC Info (CONTRAST GIVEN -- Rx MONITORING) 1 each PRN DAILY PRN MC SEE COMMENTS; Start 01/24/19 at 21:30; Stop 01/26/19 at 21:29 Ketorolac Tromethamine (Toradol 15mg Vial) 15 mg PRN Q6HRS PRN IV MILD PAIN 1-3 Last administered on 01/26/19at 03:43; Start 01/24/19 at 23:45; Stop 01/29/19 at 23:44 Ringer's Solution 1,000 ml @ 100 mls/hr Q10H IV Last administered on 01/25/19at 20:45; Start 01/24/19 at 23:45 Bisacodyl (Dulcolax Supp) 10 mg PRN DAILY PRN [place] CONSTIPATION; Start 01/24/19 at 23:45 Nicotine Polacrilex (Nicorette Gum) 1 each PRN Q1HR PRN BC SMOKING CESSATION Last administered on 01/26/19at 08:53; Start 01/24/19 at 23:45 Fentanyl Citrate (Fentanyl 2ml Vial) 50 mcg PRN Q2HR PRN IV MODERATE, SEVERE PAIN Last administered on 01/26/19at 08:58; Start 01/24/19 at 23:45 Nicotine (Nicoderm Cq 21mg) 1 patch DAILY TD ; Start 01/25/19 at 18:15 Active Scripts Active Bactrim Ds Tablet (Sulfamethoxazole/Trimethoprim) 1 Each Tablet 1 Tab PO BID [place] 5-325 Tablet (Acetaminophen/Hydrocodone Bitart) 1 Each Tablet 1-2 Tab PO Q4-6HRS Ciprodex Otic Suspension (Ciprofloxacin Hcl/Dexameth) 7.5 Ml Drops.susp 4 Drop LEFT EAR BID 7 Days Amoxicillin 875 Mg Tablet 1 Tab PO BID 10 Days Ocuflox (Ofloxacin) 5 Ml Drops 1-[address] in the left eye for the next 7 days Vitals/I & O Vital Sign - Last 24 Hours 01/25/19 01/25/19 01/25/19 01/25/19 10:31 11:00 12:34 14:27 Temp 98.6 98.6 Pulse 65 Resp 18 B/P (MAP) 127/82 (97) Pulse Ox 100 96 96 O2 Delivery Room Air Room Air Room Air Room Air 01/25/19 01/25/19 01/25/19 01/25/19 15:00 16:30 17:12 18:22 Temp 98.6 98.6 Pulse 77 Resp 18 B/P (MAP) 130/70 (90) Pulse Ox 98 96 96 96 O2 Delivery Room Air Room Air Room Air 01/25/19 01/25/19 01/25/19 01/25/19 19:00 19:30 20:40 21:25 Temp 98.5 98.5 Pulse 85 Resp 18 18 14 B/P (MAP) 144/103 (117) Pulse Ox 99 O2 Delivery Room Air Room Air Room Air Room Air 01/25/19 01/26/19 01/26/19 01/26/19 23:00 03:00 07:00 08:58 Temp 97.9 99.3 98.9 97.9 99.3 98.9 Pulse 79 88 77 Resp 18 20 18 B/P (MAP) 131/92 (105) 139/91 (107) 115/71 (86) Pulse Ox 99 99 98 O2 Delivery Room Air Room Air Room Air Room Air Intake and Output 01/25/19 01/25/19 01/26/19 14:59 22:59 06:59 Intake Total 300 ml Balance 300 ml DELANEY ORELLANA MD Jan 26, 2019 09:12
--- NOTE | 2019-01-26 09:25 | PDOC ---
Subjective: Subjective: Feels better today - pain has nearly resolved, says he's waiting on breakfast. No n/v. Objective: Vital Signs: Vital Signs Date Time Temp Pulse Resp B/P (MAP) Pulse Ox O2 Delivery O2 Flow Rate FiO2 01/26/19 08:58 Room Air 01/26/19 07:00 98.9 77 18 115/71 (86) 98 98.9 Imaging: CT A/P 01/24/19 IMPRESSION: 1. Fullness and edema of the pancreas which can be seen with pancreatitis. There is also some adjacent free fluid. 2. The appendix is dilated however there is no adjacent inflammatory changes to suggest acute appendicitis. Please note that some patients can have a dilated appendix at baseline and the patient's edema is more centered around the pancreas. 3. Small low density region at the hepatic dome. Typically benign in nature from causes such as cyst or hemangioma in a patient of this age. Alternative causes such as a region of edema from infectious etiology not excluded but would be less common. Abd US 01/26/19 IMPRESSION: 1. Limited visualization of the pancreas reveals no fluid collection or other complication of pancreatitis. 2. No gallstones or biliary dilatation. 3. Diffuse hepatic steatosis. PE: GEN: NAD, sitting on edge of bed LUNGS: CTAB HEART: RRR ABD: S/ND/NT NEURO/PSYCH: A & O 3 A/P: Recurrent pancreatitis - trigs WNL, no gallstones Transaminitis, hepatic steatosis -- Okay to ADAT per GI. Note lipase and CMP ordered this morning, await these results - additionally, Hepatitis panel, LINDA, and ASMA pending. DIVINE HERNANDEZ Jan 26, 2019 09:25
--- NOTE | 2019-01-26 09:36 | NUR ---
SW following for discharge planning. Discussed with RN, pt is from home with spouse, ultrasound this morning, waiting to determine needs. SW will continue to follow.
[2019-01-26 09:49] LABS: ALBUMIN 3.4 g/dL (3.4-5.0); ALBUMIN/GLOBULIN RATIO 0.9 (1.0-1.7); CALCIUM 8.9 mg/dL (8.5-10.1); CREATININE 0.8 mg/dL (0.7-1.3); GFR 143.7; POTASSIUM 3.8 mmol/L (3.5-5.1); TOTAL BILIRUBIN 0.9 mg/dL (0.2-1.0)
[2019-01-26 11:00] VITALS: BP 126/95
[2019-01-26] MEDS ORDERED: HYDR-3164 PO (12:34)
--- NOTE | 2019-01-26 14:47 | NUR ---
At approximately 1447 client was discharged, ambulated to exit by staff. IV was d/c'd by Fidel CRAWFORD. Client received diet information from rice farmer.
[2019-01-26 20:11] LABS: ANA INTERP Negative (.)
== END 2019-01-26 14:47 | disposition home or self-care (01) | DRG 440 ==
LOC: ER 19:13 → 4 NORTH 20:50
PROVIDERS: ADMIT Internal Medicine; ATTEND Internal Medicine
DX: K85.90 Acute pancreatitis without necrosis or infection, unspecified (principal); K86.1 Other chronic pancreatitis; F17.210 Nicotine dependence, cigarettes, uncomplicated; K59.00 Constipation, unspecified; K76.0 Fatty (change of) liver, not elsewhere classified; Z88.0 Allergy status to penicillin; Z71.6 Tobacco abuse counseling
CPT/HCPCS: 36415; 74177; 76700; 80053; 80307; 81001; 82728; 83690; 83735; 84443; 84478; 85025; 85651; 86038; 86140; 86255; 86705; 86709; 86803; 87340; 96361; 96374; G0480; J1885; J2405; J3010; J3490; J7030; J7120; Q9966; Q9967; 99285-25

== ENCOUNTER 2019-02-21 08:43 | Emergency (ER) | payer SELFPAY ==
[~2019-02-21] VITALS: Ht 177.8 cm; Wt 74.8 kg
--- NOTE | 2019-02-21 09:28 | PHYS DOC ---
Past Medical History Past Medical History: No Pertinent History Additional Past Medical Histor: EXZEMA Past Surgical History: Other Additional Past Surgical Histo: "RIGHT ANKLE" Smoking: Cigarettes Alcohol Use: Occasionally Drug Use: None Social History Narrative: PATIENT REPORTS THAT HE DOES DO DRUGS, PATIENT DID NOT INDICATE WHICH DRUGS Adult General Chief Complaint Chief Complaint: KNEE INJURY HPI HPI Patient is a 23 year old male who presents with a fall that occurred last night around 11:00 PM. The patient states that he was playing with his kids and was standing on top of the seat of the couch at home and fell. He states that he landed on his knees and then fell backwards. Denies loss of consciousness. Reports bilateral knee pain, right wrist, left humerus and elbow pain. Patient is in a wheelchair on examination however patient did ambulate into the ER. Patient is a poor historian. Rates his pain as 10 out of 10 in severity, denies taking any medications prior to arrival. Review of Systems Review of Systems Constitutional: Denies fever or chills [] Eyes: Denies change in visual acuity, redness, or eye pain [] HENT: Denies nasal congestion or sore throat [] Respiratory: Denies cough or shortness of breath [] Cardiovascular: No additional information not addressed in HPI [] GI: Denies abdominal pain, nausea, vomiting, bloody stools or diarrhea [] : Denies dysuria or hematuria [] Musculoskeletal: Denies back pain but reports R wrist tenderness, L elbow and humerus pain, bilateral knee pain. Integument: Denies rash or skin lesions [] Neurologic: Denies headache, focal weakness or sensory changes [] Endocrine: Denies polyuria or polydipsia [] Complete systems were reviewed and found to be within normal limits, except as documented in this note. Current Medications Current Medications Current Medications Medications (Trade) Dose Ordered Sig/Obie Start Time Stop Time Status Last Admin Dose Admin Ketorolac Tromethamine (Toradol Im) 30 mg 1X ONCE 02/21/19 09:30 02/21/19 09:31 DC 02/21/19 09:27 30 MG Allergies Allergies Allergies Coded Allergies Type Severity Reaction Last Updated Verified Penicillins Allergy Intermediate 02/17/17 Yes Physical Exam Physical Exam Constitutional: Well developed, well nourished, no acute distress, non-toxic appearance. [] HENT: Normocephalic, atraumatic, bilateral external ears normal, oropharynx moist, no oral exudates, nose normal. [] Eyes: PERRLA, EOMI, conjunctiva normal, no discharge. [] Neck: Normal range of motion, no tenderness, supple, no stridor. [] Cardiovascular:Heart rate regular rhythm, no murmur [] Lungs & Thorax: Bilateral breath sounds clear to auscultation [] Abdomen: Bowel sounds normal, soft, no tenderness, no masses, no pulsatile masses. [] Skin: Warm, dry, no erythema, no rash. [] Back: No tenderness, no CVA tenderness. [] Extremities: Tenderness to bilateral knees, no edema, no obvious deformity. Patient ambulated into ER. refuses full examination of knee due to pain. States is able to extend knees; wrist tenderness, no edema, has full ROM in the wrists, L humerus tenderness, full range of motion in arm, no edema or obvious deformity. Neurologic: Alert and oriented X 3, normal motor function, normal sensory function, no focal deficits noted. [] Psychologic: Affect normal, judgement normal, mood normal. [] Current Patient Data Vital Signs Vital Signs Date Time Temp Pulse Resp B/P (MAP) Pulse Ox O2 Delivery O2 Flow Rate FiO2 02/21/19 08:44 97.9 62 14 123/80 (94) 96 Room Air 97.9 EKG EKG [] Radiology/Procedures Radiology/Procedures [] PATIENT: BHARGAVI LOPEZ ACCOUNT: [id number] : 1995 LOCATION: ER AGE: 23 SEX: M EXAM STATUS: REG ER ORD. PHYSICIAN: JAMES QURESHI APRN REASON: fall PROCEDURE: WRIST 3V RIGHT EXAM: 1. Left humerus 2 views. 2. Left elbow 3 views. 3. Right wrist 3 views. HISTORY: Fall. COMPARISON: None. FINDINGS: No fractures are identified throughout the left shoulder, humerus and elbow. Joint spaces and alignment at the left shoulder and elbow appear maintained. There is no elbow effusion. No fractures are appreciated at the right wrist. Joint spaces and alignment are maintained. IMPRESSION: 1. No fracture or malalignment. Electronically signed by: Salome Blankenship MD (02/21/2019 10:29 AM) [facility] [address] [place] [address] IMAGING REPORT Signed PATIENT: BHARGAVI LOPEZ ACCOUNT: [id number] : 1995 LOCATION: ER AGE: 23 SEX: M EXAM STATUS: REG ER ORD. PHYSICIAN: JAMES QURESHI APRN REASON: fall PROCEDURE: KNEE RIGHT 4V EXAM: 1. KNEE RIGHT 4V. 2. KNEE LEFT 4V. HISTORY: Fall. COMPARISON: None. FINDINGS: No fractures are appreciated at either knee. Joint spaces and alignment are maintained bilaterally. There is no joint effusion. Prepatellar soft tissue swelling is suspected bilaterally. IMPRESSION: 1. Correlate for prepatellar soft tissue swelling bilaterally. No fracture or joint effusion. Electronically signed by: Salome Blankenship MD (02/21/2019 10:30 AM) [facility] DICTATED and SIGNED BY: CHA BLANKENSHIP MD DATE: 02/21/19 1030 Course & Med Decision Making Course & Med Decision Making Pertinent Labs and Imaging studies reviewed. (See chart for details) Patient is poor historian and is moaning in pain on examination in room. Patient is not allowing full examination of injury. Patient ambulated into ER, Will order x-rays and give IM Toradol for pain. X-rays are negative, will put chaz wrap on knees and discharge to follow up with primary care doctor. Dragon Disclaimer Dragon Disclaimer This electronic medical record was generated, in whole or in part, using a voice recognition dictation system. Departure Departure Impression: Primary Impression: Fall Disposition: 01 HOME, SELF-CARE Condition: STABLE Referrals: NO PCP (PCP) Patient Instructions: RICE - Routine Care for Injuries Additional Instructions: Thank you for visiting [facility]. We appreciate you trusting us with your care. If any additional problems come up don't hesitate to return to visit us. Please follow up with your primary care provider so they can plan additional care if needed and know about the problem that you had. If symptoms worsen come back to the Emergency Department. Any concerning symptoms that start such as chest pain, shortness of Air, weakness or numbness on one side of the body, running high fevers or any other concerning symptoms return to the ER. Problem Qualifiers Primary Impression: Fall Encounter type: initial encounter Qualified Codes: W19.XXXA - Unspecified fall, initial encounter JAMES QURESHI APRN Feb 21, 2019 09:28
[2019-02-21] MEDS ORDERED: KETOROLAC 60 MG/2 ML VIAL. IM ONE (09:30)
--- NOTE | 2019-02-21 10:32 | RAD ---
EXAM: 1. Left humerus 2 views. 2. Left elbow 3 views. 3. Right wrist 3 views. HISTORY: Fall. COMPARISON: None. FINDINGS: No fractures are identified throughout the left shoulder, humerus and elbow. Joint spaces and alignment at the left shoulder and elbow appear maintained. There is no elbow effusion. No fractures are appreciated at the right wrist. Joint spaces and alignment are maintained. IMPRESSION: 1. No fracture or malalignment. Electronically signed by: Salome Blankenship MD (02/21/2019 10:29 AM) [facility]
--- NOTE | 2019-02-21 10:32 | RAD ---
EXAM: 1. Left humerus 2 views. 2. Left elbow 3 views. 3. Right wrist 3 views. HISTORY: Fall. COMPARISON: None. FINDINGS: No fractures are identified throughout the left shoulder, humerus and elbow. Joint spaces and alignment at the left shoulder and elbow appear maintained. There is no elbow effusion. No fractures are appreciated at the right wrist. Joint spaces and alignment are maintained. IMPRESSION: 1. No fracture or malalignment. Electronically signed by: Salome Blankenship MD (02/21/2019 10:29 AM) [facility]
--- NOTE | 2019-02-21 10:34 | RAD ---
EXAM: 1. KNEE RIGHT 4V. 2. KNEE LEFT 4V. HISTORY: Fall. COMPARISON: None. FINDINGS: No fractures are appreciated at either knee. Joint spaces and alignment are maintained bilaterally. There is no joint effusion. Prepatellar soft tissue swelling is suspected bilaterally. IMPRESSION: 1. Correlate for prepatellar soft tissue swelling bilaterally. No fracture or joint effusion. Electronically signed by: Salome Blankenship MD (02/21/2019 10:30 AM) [facility]
--- NOTE | 2019-02-21 10:34 | RAD ---
EXAM: 1. KNEE RIGHT 4V. 2. KNEE LEFT 4V. HISTORY: Fall. COMPARISON: None. FINDINGS: No fractures are appreciated at either knee. Joint spaces and alignment are maintained bilaterally. There is no joint effusion. Prepatellar soft tissue swelling is suspected bilaterally. IMPRESSION: 1. Correlate for prepatellar soft tissue swelling bilaterally. No fracture or joint effusion. Electronically signed by: Salome Blankenship MD (02/21/2019 10:30 AM) [facility]
== END 2019-02-21 10:56 | disposition home or self-care (01) ==
LOC: ER 08:43
DX: M25.561 Pain in right knee (principal); M25.562 Pain in left knee; M25.531 Pain in right wrist; M25.522 Pain in left elbow; F17.210 Nicotine dependence, cigarettes, uncomplicated; Z88.0 Allergy status to penicillin; W17.89XA Other fall from one level to another, initial encounter; Y93.89 Activity, other specified; Y92.009 Unspecified place in unspecified non-institutional (private) residence as the place of occurrence of the external cause; Y99.8 Other external cause status
CPT/HCPCS: 73060; 73080; 73110; 73564; 96372; 99284; J1885

== ENCOUNTER 2019-04-19 05:26 | Emergency (ER) | payer SELFPAY ==
[~2019-04-19] VITALS: Ht 177.8 cm; Wt 78.0 kg
--- NOTE | 2019-04-19 05:43 | PHYS DOC ---
Past Medical History Past Medical History: No Pertinent History Additional Past Medical Histor: EXZEMA (DOROTA PATEL MD) Past Surgical History: Other Additional Past Surgical Histo: "RIGHT ANKLE" (DOROTA PATEL MD) Alcohol Use: Occasionally Drug Use: Other (DOROTA PATEL MD) Adult General Chief Complaint Chief Complaint: ABDOMINAL PAIN HPI HPI Patient is a 24 year old m hx of pancreatitis proposed to girlfriend had a "soiree" since then increasing epigastric abdominal pain sharp radiates to back identical to prior pancreatitis no vomiting just hte pain no relief with motrin (DOROTA PATEL MD) Review of Systems Review of Systems Constitutional: Denies fever or chills [] Eyes: Denies change in visual acuity, redness, or eye pain [] HENT: Denies nasal congestion or sore throat [] Musculoskeletal: Denies back pain or joint pain [] Integument: Denies rash or skin lesions [] Neurologic: Denies headache, focal weakness or sensory changes [] Endocrine: Denies polyuria or polydipsia [] All other systems were reviewed and found to be within normal limits, except as documented in this note. (DOROTA PATEL MD) Current Medications Current Medications Current Medications Medications (Trade) Dose Ordered Sig/Obie Start Time Stop Time Status Last Admin Dose Admin Ketorolac Tromethamine (Toradol 30mg Vial) 30 mg 1X ONCE 04/19/19 06:45 04/19/19 06:46 DC 04/19/19 06:48 30 MG Morphine Sulfate (Morphine Sulfate) 4 mg 1X ONCE 04/19/19 05:45 04/19/19 05:48 DC 04/19/19 06:06 4 MG Ondansetron HCl (Zofran) 4 mg 1X ONCE 04/19/19 05:45 04/19/19 05:48 DC 04/19/19 06:06 4 MG Sodium Chloride 1,000 ml @ 1,000 mls/hr 1X ONCE 04/19/19 05:45 04/19/19 06:44 DC 04/19/19 06:06 1,000 MLS/HR (CASE TORIBIO MD) Allergies Allergies Allergies Coded Allergies Type Severity Reaction Last Updated Verified Penicillins Allergy Intermediate 02/17/17 Yes (CASE TORIBIO MD) Physical Exam Physical Exam Constitutional: Well developed, well nourished, no acute distress, non-toxic a ppearance. [] HENT: Normocephalic, atraumatic, bilateral external ears normal, oropharynx moist, no oral exudates, nose normal. [] Eyes: PERRLA, EOMI, conjunctiva normal, no discharge. [] Neck: Normal range of motion, no tenderness, supple, no stridor. [] Pulmonary: Normal respiratory effort no increased work of breathing no obvious chest wall trauma Abdomen: Bowel sounds normal, soft, epigastric tenderness, no masses, no pulsatile masses. [] Skin: Warm, dry, no erythema, no rash. [] Back: No tenderness, no CVA tenderness. [] Extremities: No tenderness, no cyanosis, no clubbing, ROM intact, no edema. [] Neurologic: Alert and oriented X 3, normal motor function, normal sensory function, no focal deficits noted. [] Psychologic: Affect normal, judgement normal, mood normal. [] (DOROTA PATEL MD) Current Patient Data Vital Signs Vital Signs Date Time Temp Pulse Resp B/P (MAP) Pulse Ox O2 Delivery O2 Flow Rate FiO2 04/19/19 06:06 20 100 04/19/19 05:32 97.7 75 147/105 (119) Room Air 97.7 (CASE TORIBIO MD) Lab Values Laboratory Tests Test 04/19/19 06:15 White Blood Count 2.9 x10^3/uL (4.0-11.0) L Red Blood Count 4.27 x10^6/uL (4.30-5.70) L Hemoglobin 14.2 g/dL (13.0-17.5) Hematocrit 40.5 % (39.0-53.0) Mean Corpuscular Volume 95 fL (79-100) Mean Corpuscular Hemoglobin 33 pg (25-35) Mean Corpuscular Hemoglobin Concent 35 g/dL (31-37) Red Cell Distribution Width 13.5 % (11.5-14.5) Platelet Count 189 x10^3/uL (140-400) Neutrophils (%) (Auto) 55 % (31-73) Lymphocytes (%) (Auto) 24 % (24-48) Monocytes (%) (Auto) 20 % (0-9) H Eosinophils (%) (Auto) 1 % (0-3) Basophils (%) (Auto) 0 % (0-3) Neutrophils # (Auto) 1.6 x10^3/uL (1.8-7.7) L Lymphocytes # (Auto) 0.7 x10^3/uL (1.0-4.8) L Monocytes # (Auto) 0.6 x10^3/uL (0.0-1.1) Eosinophils # (Auto) 0.0 x10^3/uL (0.0-0.7) Basophils # (Auto) 0.0 x10^3/uL (0.0-0.2) Platelet Estimate Pending Sodium Level 138 mmol/L (136-145) Potassium Level 3.6 mmol/L (3.5-5.1) Chloride Level 101 mmol/L (98-107) Carbon Dioxide Level 25 mmol/L (21-32) Anion Gap 12 (6-14) Blood Urea Nitrogen 6 mg/dL (8-26) L Creatinine 0.8 mg/dL (0.7-1.3) Estimated GFR (Cockcroft-Gault) 142.5 BUN/Creatinine Ratio 8 (6-20) Glucose Level 92 mg/dL (70-99) Calcium Level 8.9 mg/dL (8.5-10.1) Total Bilirubin 0.7 mg/dL (0.2-1.0) Aspartate Amino Transferase (AST) 57 U/L (15-37) H Alanine Aminotransferase (ALT) 85 U/L (16-63) H Alkaline Phosphatase 108 U/L (46-116) Total Protein 7.9 g/dL (6.4-8.2) Albumin 3.9 g/dL (3.4-5.0) Albumin/Globulin Ratio 1.0 (1.0-1.7) Lipase 717 U/L (73-393) H Laboratory Tests 04/19/19 06:15 Laboratory Tests 04/19/19 06:15 (CASE TORIBIO MD) Lab Values Laboratory Tests Test 04/19/19 06:15 White Blood Count 2.9 x10^3/uL (4.0-11.0) L Red Blood Count 4.27 x10^6/uL (4.30-5.70) L Hemoglobin 14.2 g/dL (13.0-17.5) Hematocrit 40.5 % (39.0-53.0) Mean Corpuscular Volume 95 fL (79-100) Mean Corpuscular Hemoglobin 33 pg (25-35) Mean Corpuscular Hemoglobin Concent 35 g/dL (31-37) Red Cell Distribution Width 13.5 % (11.5-14.5) Platelet Count 189 x10^3/uL (140-400) Neutrophils (%) (Auto) 55 % (31-73) Lymphocytes (%) (Auto) 24 % (24-48) Monocytes (%) (Auto) 20 % (0-9) H Eosinophils (%) (Auto) 1 % (0-3) Basophils (%) (Auto) 0 % (0-3) Neutrophils # (Auto) 1.6 x10^3/uL (1.8-7.7) L Lymphocytes # (Auto) 0.7 x10^3/uL (1.0-4.8) L Monocytes # (Auto) 0.6 x10^3/uL (0.0-1.1) Eosinophils # (Auto) 0.0 x10^3/uL (0.0-0.7) Basophils # (Auto) 0.0 x10^3/uL (0.0-0.2) Segmented Neutrophils % 65 % (35-66) Lymphocytes % 17 % (24-48) L Atypical Lymphocytes % (Manual) 1 % (0-0) H Monocytes % 17 % (0-10) H Platelet Estimate Adequate (ADEQUATE) Sodium Level 138 mmol/L (136-145) Potassium Level 3.6 mmol/L (3.5-5.1) Chloride Level 101 mmol/L (98-107) Carbon Dioxide Level 25 mmol/L (21-32) Anion Gap 12 (6-14) Blood Urea Nitrogen 6 mg/dL (8-26) L Creatinine 0.8 mg/dL (0.7-1.3) Estimated GFR (Cockcroft-Gault) 142.5 BUN/Creatinine Ratio 8 (6-20) Glucose Level 92 mg/dL (70-99) Calcium Level 8.9 mg/dL (8.5-10.1) Total Bilirubin 0.7 mg/dL (0.2-1.0) Aspartate Amino Transferase (AST) 57 U/L (15-37) H Alanine Aminotransferase (ALT) 85 U/L (16-63) H Alkaline Phosphatase 108 U/L (46-116) Total Protein 7.9 g/dL (6.4-8.2) Albumin 3.9 g/dL (3.4-5.0) Albumin/Globulin Ratio 1.0 (1.0-1.7) Lipase 717 U/L (73-393) H Laboratory Tests 04/19/19 06:15 Laboratory Tests 04/19/19 06:15 (DOROTA PATEL MD) EKG EKG [] (DOROTA PATEL MD) Radiology/Procedures Radiology/Procedures [] (DOROTA PATEL MD) Course & Med Decision Making Course & Med Decision Making Pertinent Labs and Imaging studies reviewed. (See chart for details) []likely pancreatitis, hx of same labs, pain control s/o kousha 6 am (DOROTA PATEL MD) Course & Med Decision Making Patient had lipase of 717 and was advised quit drinking alcohol and follow-up liquid diet for the next 2 days and follow-up with his primary care physician. (CASE TORIBIO MD) Dragon Disclaimer Dragon Disclaimer This electronic medical record was generated, in whole or in part, using a voice recognition dictation system. (DOROTA PATEL MD) Departure Departure Impression: Primary Impression: Acute pancreatitis Additional Impressions: Alcohol abuse Elevated liver function tests Leukopenia Disposition: HOME, SELF-CARE (at 0808) Condition: IMPROVED Referrals: NO PCP (PCP) Patient Instructions: Acute Pancreatitis, Alcohol Problems Additional Instructions: Drink plenty of liquids Follow-up with your primary care physician in 3-5 days Return to ER if not getting better Do not eat solid food for the next 48 hours Scripts Ranitidine Hcl (ZANTAC) 150 Mg Tablet 1 TAB PO BID, #14 TAB Prov: CASE TORIBIO MD 04/19/19 Tramadol Hcl (ULTRAM) 50 Mg Tablet 50 MG PO Q6HRS PRN for PAIN, #14 TAB 0 Refills Prov: CASE TORIBIO MD 04/19/19 Ondansetron Hcl (ZOFRAN) 4 Mg Tablet 1 TAB PO PRN Q6-8HRS for nausea, #12 TAB Prov: CASE TORIBIO MD 04/19/19 Problem Qualifiers Primary Impression: Acute pancreatitis Pancreatitis type: alcohol induced Acute pancreatitis complication: no infection or necrosis Qualified Codes: K85.20 - Alcohol induced acute pancreatitis without necrosis or infection Additional Impressions: Leukopenia Leukopenia type: unspecified Qualified Codes: D72.819 - Decreased white blood cell count, unspecified DOROTA PATEL MD Apr 19, 2019 05:43 CASE TORIBIO MD Apr 19, 2019 06:12
[2019-04-19] MEDS ORDERED: IV NORMAL SALINE 1000ML BAG 1,000 ML IV ONE (05:45)
[2019-04-19] MEDS ORDERED: ONDANSETRON PF 4 MG/2 ML VIAL. IV ONE (05:45)
[2019-04-19] MEDS ORDERED: MORPHINE SULFATE 4 MG/ML VIAL. IV ONE (05:45)
[2019-04-19] MEDS ORDERED: KETOROLAC 30 MG/ML VIAL. IV ONE (06:45)
[2019-04-19 07:38] LABS: BASO % 0 % (0-3); EOS % 1 % (0-3); HEMATOCRIT 40.5 % (39.0-53.0); HEMOGLOBIN 14.2 g/dL (13.0-17.5); LYMPH # 0.7 x10^3/uL (1.0-4.8); LYMPH % 24 % (24-48); MEAN CORPUSCULAR HEMOGLOBIN 33 pg (25-35); MEAN CORPUSCULAR HGB CONC 35 g/dL (31-37); MEAN CORPUSCULAR VOLUME 95 fL (79-100); MONO # 0.6 x10^3/uL (0.0-1.1); MONO % 20 % (0-9); NEUT # 1.6 x10^3/uL (1.8-7.7); NEUT % 55 % (31-73); PLATELET COUNT 189 x10^3/uL (140-400); RED BLOOD COUNT 4.27 x10^6/uL (4.30-5.70); RED CELL DISTRIBUTION WIDTH 13.5 % (11.5-14.5); WHITE BLOOD COUNT 2.9 x10^3/uL (4.0-11.0)
[2019-04-19 07:45] LABS: CALCIUM 8.9 mg/dL (8.5-10.1); CREATININE 0.8 mg/dL (0.7-1.3); GFR 142.5; POTASSIUM 3.6 mmol/L (3.5-5.1)
[2019-04-19 07:51] LABS: ALBUMIN 3.9 g/dL (3.4-5.0); TOTAL BILIRUBIN 0.7 mg/dL (0.2-1.0); TOTAL PROTEIN 7.9 g/dL (6.4-8.2)
[2019-04-19] MEDS ORDERED: TRAM-48 PO (08:12)
[2019-04-19] MEDS ORDERED: ONDA4TAB7 PO (08:12)
[2019-04-19] MEDS ORDERED: RANI-376 PO (08:17)
[2019-04-19 08:20] VITALS: BP 121/88
[2019-04-19] MEDS ORDERED: traMADol 50 MG TABLET ONE (08:24)
[2019-04-19] MEDS ORDERED: traMADol 50 MG TABLET PO ONE (08:30)
[2019-04-19 09:37] LABS: % ATYL 1 % (0-0); % LYMPHS 17 % (24-48); % MONOS 17 % (0-10); % SEGS 65 % (35-66); PLT ESTIMATE ADEQUATE (ADEQUATE)
== END 2019-04-19 08:27 | disposition home or self-care (01) ==
LOC: ER 05:26
DX: K85.20 Alcohol induced acute pancreatitis without necrosis or infection (principal); D72.819 Decreased white blood cell count, unspecified; R94.5 Abnormal results of liver function studies; Z88.0 Allergy status to penicillin
CPT/HCPCS: 36415; 80053; 83690; 85007; 85025; 96374; 96375; 99285; J1885; J2270; J2405; J7030